=== PATIENT | female | born 1975 | race Caucasian/White ===

== ENCOUNTER → 2016-12-30 | Outpatient (CLI) | payer BC, OTHER ==
--- NOTE | 2017-01-03 11:32 | MM ---
Reason for exam: screening (asymptomatic). Last mammogram was performed 6 years and 11 months ago. Physical Findings: A clinical breast exam by your physician is recommended on an annual basis and results should be correlated with mammographic findings. MG Screening Mammo w CAD Bilateral CC and MLO view(s) were taken. Prior study comparison: February 10, 2010, bilateral digital screening mammogram. There are scattered fibroglandular densities. No significant changes when compared with prior studies. ASSESSMENT: Benign, BI-RAD 2 RECOMMENDATION: Routine screening mammogram of both breasts in 1 year.
== END ==
LOC: RADMAMWWP 13:49
PROVIDERS: ATTEND Family Medicine
DX: Z12.31 Encounter for screening mammogram for malignant neoplasm of breast (principal)

== ENCOUNTER 2017-02-04 22:33 | Emergency (ER) | payer BC, OTHER ==
--- NOTE | 2017-02-04 23:17 | ED ---
Skin/Abscess/FB HPI - General Chief complaint: Skin/Abscess/Foreign Body Stated complaint: lump on buttox Time Seen by Provider: 02/04/17 22:55 Source: patient, RN notes reviewed Mode of arrival: ambulatory Limitations: no limitations - History of Present Illness Initial comments: 42 yo female presents to the ER with chief complaint of gluteal abscess. pt states that she has had this for the past 3 or 4 days and has been getting worse. Patient states that his symptoms such. Patient denies any drainage or discharge from the area. Patient denies any fever chills cough cold runny nose. Patient states she was concerned due to the continued symptoms that she thought that she should be evaluated. Patient denies any recent fever, chills, shortness of breath, chest pain, back pain, abdominal pain, nausea vomiting, numbness or tingling, dysuria or hematuria, constipation or diarrhea, headaches or visual changes, or any other current symptoms. - Related Data Home Medications Medication Instructions Recorded Confirmed Loratadine [Claritin] 10 mg PO DAILY 02/28/16 02/28/16 Levothyroxine Sodium [Synthroid] 25 mcg PO DAILY 02/04/17 02/04/17 Previous Rx's Medication Instructions Recorded Sulfamethox-Tmp 800-160Mg [Bactrim 2 each PO Q12HR #56 tab 02/04/17 DS 800-160 mg] Allergies Allergy/AdvReac Type Severity Reaction Status Date / Time cephalexin monohydrate Allergy Nausea & Verified 02/04/17 22:54 [From Keflex] Vomiting & Diarrhea Penicillins Allergy Rash/Hives Verified 02/04/17 22:54 morphine AdvReac Itching Verified 02/04/17 22:54 Review of Systems ROS Statement: Those systems with pertinent positive or pertinent negative responses have been documented in the HPI. ROS Other: All systems not noted in ROS Statement are negative. Past Medical History Past Medical History: Thyroid Disorder History of Any Multi-Drug Resistant Organisms: None Reported Past Surgical History: Appendectomy, Section, Cholecystectomy, Tubal Ligation Past Psychological History: No Psychological Hx Reported Smoking Status: Former smoker Past Alcohol Use History: None Reported Past Drug Use History: None Reported General Exam Limitations: no limitations General appearance: alert, in no apparent distress ENT exam: Present: normal exam, mucous membranes moist Neck exam: Present: normal inspection Respiratory exam: Present: normal lung sounds bilaterally. Absent: respiratory distress, wheezes, rales, rhonchi, stridor Cardiovascular Exam: Present: regular rate, normal rhythm, normal heart sounds. Absent: systolic murmur, diastolic murmur, rubs, gallop, clicks Extremities exam: Present: normal inspection, full ROM, normal capillary refill. Absent: tenderness, pedal edema, joint swelling, calf tenderness Back exam: Present: normal inspection Neurological exam: Present: alert, oriented X3 Psychiatric exam: Present: normal affect, normal mood Skin exam: Present: warm, dry, other (Due to abscess to the left butt cheek.) Course Vital Signs 02/04/17 22:52 Temperature 97.9 F Pulse Rate 88 Respiratory 20 Rate Blood Pressure 135/89 O2 Sat by Pulse 99 Oximetry Medical Decision Making - Medical Decision Making 42-year-old female presents with gluteal abscess. A needle was used which did not create any purulent material when we did excise the wound. At this time we discussed we will start her on Bactrim. We discussed return plan. Patient was questions. They state Jamey plan. They will be discharged home. Disposition Clinical Impression: Abscess, gluteal, left Disposition: HOME SELF-CARE Condition: Stable Instructions: Abscess (ED) Additional Instructions: Please use medication as discussed. Please follow up with family doctor if symptoms have not improved over the next two days. Please return to the emergency room if your symptoms increase or worsen or for any other concerns. Prescriptions: Sulfamethox-Tmp 800-160Mg [Bactrim DS 800-160 mg] 2 each PO Q12HR #56 tab Referrals: Maddie Balderrama MD [Primary Care Provider] - 1-2 days Time of Disposition: 23:18
[2017-02-04 23:56] VITALS: BP 130/89; PULSE 98; RESP 18; TEMP 98.2
== END 2017-02-05 00:01 | disposition home or self-care (01) ==
LOC: EC 22:33
DX: L02.31 Cutaneous abscess of buttock (principal); E07.9 Disorder of thyroid, unspecified; Z87.891 Personal history of nicotine dependence; Z79.899 Other long term (current) drug therapy; Z88.1 Allergy status to other antibiotic agents; Z88.0 Allergy status to penicillin; Z88.5 Allergy status to narcotic agent
CPT/HCPCS: 99283

== ENCOUNTER 2017-02-08 00:33 | Emergency (ER) | payer OTHER ==
[2017-02-08 00:48] VITALS: BP 140/80; PULSE 88; RESP 20; TEMP 98.6
[2017-02-08] MEDS ORDERED: CLINDAMYCIN 150 MG CAP PO STA (01:05)
--- NOTE | 2017-02-08 01:09 | ED ---
Skin/Abscess/FB HPI - General Chief complaint: Skin/Abscess/Foreign Body Stated complaint: Sores-Revisit Time Seen by Provider: 02/08/17 00:52 Source: patient, RN notes reviewed Mode of arrival: ambulatory Limitations: no limitations - History of Present Illness Initial comments: Patient is a 42-year-old female presents to the emergency room for reevaluation of left gluteal abscess. Patient states she was seen on Tuesday. Patient states the area was incised with a needle. Patient states she was placed on Bactrim. Patient states that she has a family history of ALLERGIES to Bactrim. Patient states she was afraid to take Bactrim and wanted to wait to see her primary care provider on Tuesday before taking it. Patient states that due to insurance changes she was unable see her primary care provider. Patient states she is here to have the area reevaluated. Patient states she wants to take a different antibiotic other than Bactrim because she's afraid to have an ALLERGIC reaction to it. Patient denies any worsening pain. Patient denies any drainage from the area. Patient states that she's been cleaning the area and applying warm compresses. Patient denies history of MRSA. Patient denies fevers or chills. - Related Data Home Medications Medication Instructions Recorded Confirmed Loratadine [Claritin] 10 mg PO DAILY PRN 02/28/16 02/08/17 Levothyroxine Sodium [Synthroid] 25 mcg PO DAILY 02/04/17 02/08/17 Previous Rx's Medication Instructions Recorded Sulfamethox-Tmp 800-160Mg [Bactrim 2 each PO Q12HR #56 tab 02/04/17 DS 800-160 mg] Clindamycin [Cleocin] 300 mg PO Q6H 7 Days 02/08/17 Allergies Allergy/AdvReac Type Severity Reaction Status Date / Time bacitracin Allergy Rash/Hives Verified 02/08/17 00:47 [From Neosporin ([id number])] morphine Allergy Itching Verified 02/08/17 00:47 neomycin Allergy Rash/Hives Verified 02/08/17 00:47 [From Neosporin ([id number])] Penicillins Allergy Rash/Hives Verified 02/08/17 00:47 polymyxin B Allergy Rash/Hives Verified 02/08/17 00:47 [From Neosporin ([id number])] cephalexin monohydrate AdvReac Nausea & Verified 02/08/17 00:47 [From Keflex] Vomiting & Diarrhea Review of Systems ROS Statement: Those systems with pertinent positive or pertinent negative responses have been documented in the HPI. ROS Other: All systems not noted in ROS Statement are negative. Past Medical History Past Medical History: Thyroid Disorder History of Any Multi-Drug Resistant Organisms: None Reported Past Surgical History: Appendectomy, Section, Cholecystectomy, Tubal Ligation Past Psychological History: No Psychological Hx Reported Smoking Status: Former smoker Past Alcohol Use History: None Reported Past Drug Use History: None Reported General Exam - General Exam Comments Initial Comments: Laying in exam room, no distress. Limitations: no limitations General appearance: alert, in no apparent distress Head exam: Present: atraumatic, normocephalic, normal inspection Eye exam: Present: normal appearance ENT exam: Present: normal exam Neck exam: Present: normal inspection Respiratory exam: Present: normal lung sounds bilaterally. Absent: respiratory distress Cardiovascular Exam: Present: regular rate, normal rhythm, normal heart sounds Extremities exam: Present: normal inspection Back exam: Present: normal inspection Neurological exam: Present: alert, oriented X3, CN II-XII intact, normal gait Psychiatric exam: Present: normal affect, normal mood Skin exam: Present: warm, dry, other (Small pinpoint scabs over left gluteal cleft with slight surrounding erythema. No fluctuance or signs of abscess noted. No significant cellulitis noted.) Course Vital Signs 02/08/17 00:45 Temperature 98.6 F Pulse Rate 88 Respiratory 20 Rate Blood Pressure 140/80 O2 Sat by Pulse 98 Oximetry Medical Decision Making - Medical Decision Making Patient is a 42-year-old female presents to the emergency room for reevaluation of left gluteal abscess. Area does appear to be improved from what patient described how the area looked on Tuesday. Patient does not want to take Bactrim. Will switch patient from Bactrim to clindamycin, which will still cover MRSA if needed. Advised patient to still have the area reevaluated in a few days by her primary care provider. Patient states she understands everything that was discussed with her. Return parameters discussed. Disposition Clinical Impression: Folliculitis Disposition: HOME SELF-CARE Condition: Good Instructions: Folliculitis (ED) Additional Instructions: Take antibiotics as directed. Continue with warm compresses and sitz baths. Please follow up with primary care provider in 1-2 days for reevaluation. If any new symptom arises or symptoms worsen, return to ER as soon as possible. Prescriptions: Clindamycin [Cleocin] 300 mg PO Q6H 7 Days Referrals: Maddie Balderrama MD [Primary Care Provider] - 1-2 days Time of Disposition: 01:07
== END 2017-02-08 01:20 | disposition home or self-care (01) ==
LOC: EC 00:33
DX: L73.9 Follicular disorder, unspecified (principal); E07.9 Disorder of thyroid, unspecified; Z87.891 Personal history of nicotine dependence; Z88.1 Allergy status to other antibiotic agents; Z88.0 Allergy status to penicillin; Z88.5 Allergy status to narcotic agent; Z88.2 Allergy status to sulfonamides; Z79.899 Other long term (current) drug therapy
CPT/HCPCS: 99282

== ENCOUNTER 2018-07-03 21:46 | Emergency (ER) | payer OTHER ==
[2018-07-03 21:50] VITALS: BP 124/88; PULSE 59; RESP 22; TEMP 98.5
--- NOTE | 2018-07-03 22:18 | ED ---
URI HPI - General Chief Complaint: Upper Respiratory Infection Stated Complaint: congestion Time Seen by Provider: 07/03/18 22:02 Source: patient, family Mode of arrival: ambulatory Limitations: no limitations - History of Present Illness Initial Comments: 43-year-old female patient presents to the emergency department today for evaluation of nasal congestion. Patient states that she has had nasal congestion and mild cough since Tuesday. Patient states that she is concerned she may have a sinus infection. States that she is not having any nasal drainage. States she has been taking mucinex max which includes a decongestant and it doesn't seem to be helping. States that she has also flushing with saline and and applying warm compresses to her face which do not help either. She denies any fevers or chills with this. Denies any shortness of breath or chest pain. States that she does x-ray and facial pressure. Patient denies any recent rash, chest pain, abdominal pain, nausea, vomiting, diarrhea, constipation, back pain, numbness, tingling, dizziness, weakness, hematuria, dysuria, urinary urgency, urinary frequency, headache, visual changes, or any other complaints. - Related Data Home Medications Medication Instructions Recorded Confirmed Loratadine [Claritin] 10 mg PO DAILY PRN 02/28/16 07/03/18 Azithromycin [Zithromax Z-pack] See Taper PO DIRECTED 08/01/17 07/03/18 Levothyroxine Sodium [Synthroid] 50 mcg PO DAILY 08/01/17 07/03/18 Pseudoephedrine HCl [Sudafed] 30 mg PO Q4HR PRN 08/01/17 07/03/18 Previous Rx's Medication Instructions Recorded Ciprofloxacin HCl [Cipro] 500 mg PO Q12HR #20 tablet 08/01/17 Fluticasone Nasal [place] [Flonase 2 spr EA NOSTRIL DAILY #1 bottle 08/01/17 Nasal [place]] Mometasone Furoate [Nasonex Nasal 2 spr EA NOSTRIL DAILY #1 bottle 07/03/18 [place]] Allergies Allergy/AdvReac Type Severity Reaction Status Date / Time bacitracin Allergy Rash/Hives Verified 07/03/18 21:50 [From Neosporin ([id number])] morphine Allergy Itching Verified 07/03/18 21:50 neomycin Allergy Rash/Hives Verified 07/03/18 21:50 [From Neosporin ([id number])] Penicillins Allergy Rash/Hives Verified 07/03/18 21:50 polymyxin B Allergy Rash/Hives Verified 07/03/18 21:50 [From Neosporin ([id number])] cephalexin monohydrate AdvReac Nausea & Verified 07/03/18 21:50 [From Keflex] Vomiting & Diarrhea Review of Systems ROS Statement: Those systems with pertinent positive or pertinent negative responses have been documented in the HPI. ROS Other: All systems not noted in ROS Statement are negative. Past Medical History Past Medical History: Thyroid Disorder History of Any Multi-Drug Resistant Organisms: None Reported Past Surgical History: Appendectomy, Section, Cholecystectomy, Tubal Ligation Past Psychological History: No Psychological Hx Reported Smoking Status: Former smoker Past Alcohol Use History: None Reported Past Drug Use History: None Reported General Exam Limitations: no limitations General appearance: alert, in no apparent distress, other (This is a well- developed, well-nourished adult female patient in no acute distress. Vital signs upon presentation are temperature 98.5F, pulse 59, respirations 22, blood pressure 124 radiate, pulse ox 99% on room air.) Eye exam: Present: normal appearance, PERRL, EOMI. Absent: scleral icterus, conjunctival injection, periorbital swelling ENT exam: Present: normal exam, normal oropharynx, mucous membranes moist, TM's normal bilaterally, other (Maxillary Sinus tenderness) Neck exam: Present: normal inspection. Absent: tenderness, meningismus, lymphadenopathy Respiratory exam: Present: normal lung sounds bilaterally. Absent: respiratory distress, wheezes, rales, rhonchi, stridor Cardiovascular Exam: Present: regular rate, normal rhythm, normal heart sounds. Absent: systolic murmur, diastolic murmur, rubs, gallop, clicks Neurological exam: Present: alert, oriented X3, CN II-XII intact Psychiatric exam: Present: normal affect, normal mood Skin exam: Present: warm, dry, intact, normal color. Absent: rash Course Vital Signs 07/03/18 21:47 Temperature 98.5 F Pulse Rate 59 L Respiratory 22 Rate Blood Pressure 124/88 O2 Sat by Pulse 99 Oximetry Medical Decision Making - Medical Decision Making 43-year-old female patient presented to the emergency department today for complaints of nasal congestion. Physical examination did reveal some maxillary sinus tenderness. Oropharynx is normal. Vital signs are stable. Patient symptoms are consistent with viral rhinosinusitis. She is instructed to continue taking the [id number] nasal decongestants. We will add Nasacort to her regimen. She is instructed to follow-up with her primary care physician for recheck in 1-2 days. Return parameters discussed in detail. She verbalizes understanding and agrees with this plan. Disposition Clinical Impression: Acute rhinosinusitis Disposition: HOME SELF-CARE Condition: Good Instructions: Rhinosinusitis (ED) Additional Instructions: Take medications as directed. Follow-up with your primary care physician for recheck in 1-2 days. Return here immediately for any new, worsening, or concerning symptoms. Prescriptions: Mometasone Furoate [Nasonex Nasal [place]] 2 spr EA NOSTRIL DAILY #1 bottle Is patient prescribed a controlled substance at d/c from ED?: No Referrals: Maddie Balderrama MD [Primary Care Provider] - 1-2 days Time of Disposition: 22:18
== END 2018-07-03 22:24 | disposition home or self-care (01) ==
LOC: EC 21:46
DX: J01.00 Acute maxillary sinusitis, unspecified (principal); E07.9 Disorder of thyroid, unspecified; Z87.891 Personal history of nicotine dependence; Z79.899 Other long term (current) drug therapy; Z88.0 Allergy status to penicillin; Z88.1 Allergy status to other antibiotic agents; Z88.5 Allergy status to narcotic agent
CPT/HCPCS: 99283

== ENCOUNTER 2018-08-12 15:53 | Emergency (ER) | payer OTHER ==
[2018-08-12 16:03] VITALS: PULSE 82; RESP 16; TEMP 97.5
[2018-08-12] MEDS ORDERED: SODIUM CHLORIDE 0.9% 1,000 ML IV STA (16:16)
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
[2018-08-12 16:45] LABS: Basophils % (A) 1 %; Eosinophils # (A) 0.2 k/uL (0-0.7); Eosinophils % (A) 2 %; HGB 13.2 gm/dL (11.4-16.0); Lymphocytes # (A) 1.4 k/uL (1.0-4.8); Lymphocytes % (A) 22 %; MCH 28.6 pg (25.0-35.0); MCHC 33.1 g/dL (31.0-37.0); MCV 86.6 fL (80.0-100.0); Mean Platelet Volume 6.9; Monocytes # (A) 0.3 k/uL (0-1.0); Monocytes % (A) 5 %; Neutrophils # (A) 4.6 k/uL (1.3-7.7); Neutrophils % (A) 69 %; Platelet Count 288 k/uL (150-450); RBC 4.62 m/uL (3.80-5.40); RDW 13.8 % (11.5-15.5); WBC 6.6 k/uL (3.8-10.6)
[2018-08-12 16:54] LABS: ALT 16 U/L (9-52); AST 21 U/L (14-36); Albumin 3.7 g/dL (3.5-5.0); Alkaline Phosphatase 48 U/L (38-126); Anion Gap 6 mmol/L; Blood Urea Nitrogen 9 mg/dL (7-17); Calcium 9.3 mg/dL (8.4-10.2); Carbon Dioxide 27 mmol/L (22-30); Chloride 108 mmol/L (98-107); Glucose 86 mg/dL (74-99); Potassium 4.6 mmol/L (3.5-5.1); Sodium 141 mmol/L (137-145); Total Bilirubin 0.4 mg/dL (0.2-1.3); Total Protein 6.5 g/dL (6.3-8.2)
[2018-08-12 16:57] LABS: Creatine Kinase 55 U/L (30-135)
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
[2018-08-12 17:10] LABS: Creatine Kinase MB 0.3 ng/mL (0.0-2.4); Troponin I <0.012 ng/mL (0.000-0.034)
[2018-08-12 17:56] VITALS: BP 118/60
== END 2018-08-12 17:56 | disposition home or self-care (01) ==
LOC: EC 15:53
DX: S16.1XXA Strain of muscle, fascia and tendon at neck level, initial encounter (principal); R07.89 Other chest pain; R06.00 Dyspnea, unspecified; E07.9 Disorder of thyroid, unspecified; Z87.891 Personal history of nicotine dependence; Z79.899 Other long term (current) drug therapy; Z88.1 Allergy status to other antibiotic agents; Z88.5 Allergy status to narcotic agent; Z88.0 Allergy status to penicillin; V89.2XXA Person injured in unspecified motor-vehicle accident, traffic, initial encounter; Y92.89 Other specified places as the place of occurrence of the external cause
CPT/HCPCS: 36415; 71046; 80053; 82550; 82553; 84484; 85025; 85610; 85730; 96360; 99284

== ENCOUNTER 2018-10-04 00:32 | Emergency (ER) | payer OTHER ==
[2018-10-04 00:38] VITALS: RESP 16
--- NOTE | 2018-10-04 02:07 | CT ---
EXAMINATION TYPE: CT facial bones wo con DATE OF EXAM: 10/04/2018 COMPARISON: None HISTORY: Right side facial and jaw pain CT DLP: 1033.60 mGycm Automated exposure control for dose reduction was used. TECHNIQUE: CT scan of the sinuses is performed without contrast, axial images are obtained, coronal r eformatted images are also reviewed. FINDINGS: The orbital margins are intact. There is no evidence of a blowout fracture. The nasal bone is intact. There is small fluid level in right maxillary sinus. There is bilateral patency of the ost iomeatal complex. The maxilla is intact. Zygomatic arches appear intact. The mandible is intact. Temp oromandibular joints appear normal. There is normal aeration of the mastoid sinuses. Temporomandibula r joint spaces are normal. There is no evidence of a soft tissue mass. Submandibular salivary glands are fairly symmetric. There are a few submandibular lymph nodes that measure up to 9 mm. There are an terior triangle cervical lymph nodes that measure up to 11 mm. IMPRESSION: Small fluid level right maxillary sinus is nonspecific and could relate to inflammatory d isease. No fracture. Nonspecific cervical lymph nodes.
--- NOTE | 2018-10-04 02:48 | ED ---
ENT HPI - General Chief complaint: ENT Stated complaint: throat pain Time Seen by Provider: 10/04/18 01:18 Source: patient, RN notes reviewed, old records reviewed Mode of arrival: ambulatory Limitations: no limitations - History of Present Illness Initial comments: 43 year old female presents with intense R ear pain, popping, sore throat, and mastoid pain. She reports that the ear popping occured yesterday. She states that she has intermittent fevers. She reports diminished hearing. 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 She complains of sinus tenderness as well. - Related Data Home Medications Medication Instructions Recorded Confirmed Loratadine [Claritin] 10 mg PO DAILY PRN 02/28/16 07/03/18 Azithromycin [Zithromax Z-pack] See Taper PO DIRECTED 08/01/17 07/03/18 Levothyroxine Sodium [Synthroid] 50 mcg PO DAILY 08/01/17 07/03/18 Pseudoephedrine HCl [Sudafed] 30 mg PO Q4HR PRN 08/01/17 07/03/18 Previous Rx's Medication Instructions Recorded Ciprofloxacin HCl [Cipro] 500 mg PO Q12HR #20 tablet 08/01/17 Fluticasone Nasal [place] [Flonase 2 spr EA NOSTRIL DAILY #1 bottle 08/01/17 Nasal [place]] Mometasone Furoate [Nasonex Nasal 2 spr EA NOSTRIL DAILY #1 bottle 07/03/18 [place]] Cyclobenzaprine [Flexeril] 10 mg PO TID #10 tab 08/12/18 Ibuprofen 600 mg PO TID #20 tablet 08/12/18 Azithromycin [Zithromax Z-pack] 250 mg PO DIRECTED #6 tab 10/04/18 Fluticasone Nasal [place] [Flonase 2 spr EA NOSTRIL DAILY #1 bottle 10/04/18 Nasal [place]] Loratadine-Pseudoeph 5-120 mg 1 each PO Q12HR #20 tab 10/04/18 [Claritin-D 12 HR] Allergies Allergy/AdvReac Type Severity Reaction Status Date / Time bacitracin Allergy Rash/Hives Verified 10/04/18 00:38 [From Neosporin ([id number])] morphine Allergy Itching Verified 10/04/18 00:38 neomycin Allergy Rash/Hives Verified 10/04/18 00:38 [From Neosporin ([id number])] Penicillins Allergy Rash/Hives Verified 10/04/18 00:38 polymyxin B Allergy Rash/Hives Verified 10/04/18 00:38 [From Neosporin ([id number])] cephalexin monohydrate AdvReac Nausea & Verified 10/04/18 00:38 [From Keflex] Vomiting & Diarrhea Review of Systems ROS Statement: Those systems with pertinent positive or pertinent negative responses have been documented in the HPI. ROS Other: All systems not noted in ROS Statement are negative. Past Medical History Past Medical History: Thyroid Disorder History of Any Multi-Drug Resistant Organisms: None Reported Past Surgical History: Appendectomy, Section, Cholecystectomy, Tubal Ligation Past Psychological History: No Psychological Hx Reported Smoking Status: Former smoker Past Alcohol Use History: None Reported Past Drug Use History: None Reported General Exam - General Exam Comments Initial Comments: This is a 43 year old female, no acute distress. Limitations: no limitations General appearance: alert, in no apparent distress Head exam: Present: atraumatic, normocephalic, normal inspection Eye exam: Present: normal appearance, PERRL, EOMI. Absent: scleral icterus, conjunctival injection, periorbital swelling ENT exam: Present: mucous membranes moist, TM's normal bilaterally, other ( Tenderness over R mastoid, all sinusus). Absent: normal exam (erythemaotus oropharynx. ), normal oropharynx, mucous membranes dry Neck exam: Present: normal inspection. Absent: tenderness, meningismus, lymphadenopathy Respiratory exam: Present: normal lung sounds bilaterally. Absent: respiratory distress, wheezes, rales, rhonchi, stridor Cardiovascular Exam: Present: regular rate, normal rhythm, normal heart sounds. Absent: systolic murmur, diastolic murmur, rubs, gallop, clicks Extremities exam: Present: normal inspection, full ROM, normal capillary refill. Absent: tenderness, pedal edema, joint swelling, calf tenderness Back exam: Present: normal inspection Neurological exam: Present: alert, oriented X3, CN II-XII intact Course Vital Signs 10/04/18 10/04/18 00:36 03:00 Temperature 98.7 F 98.1 F Pulse Rate 86 91 Respiratory 16 16 Rate Blood Pressure 133/92 125/98 O2 Sat by Pulse 99 97 Oximetry Medical Decision Making - Medical Decision Making 43 year old female presents today with R ear pain, popping, mastoid tenderness, and sinus pain. She states that she has a history of facial bone deterioration, and questions if she has infections within her facial bones. CT scan completed, showing mild R maxillary sinus fluid. Will put the patient on antibiotics for sinusitis and given ENT referral. Discussed PCP follow up as well. - Lab Data Lab Results 10/04/18 Range/Units 01:40 Group A Strep Rapid Negative (Negative) - Radiology Data Radiology results: report reviewed Small fluid level in the right maxillary sinus nonspecific. Really towards inflammatory disease. No fracture. Nonspecific cervical lymph nodes noted. Disposition Clinical Impression: Sinusitis, Pharyngitis Disposition: HOME SELF-CARE Condition: Good Instructions: Sinusitis (ED) Additional Instructions: Patient advised to take meds as prescribed. Follow-up with primary care physician. Return to emergency department if any alarming signs or symptoms occur. Prescriptions: Azithromycin [Zithromax Z-pack] 250 mg PO DIRECTED #6 tab Fluticasone Nasal [place] [Flonase Nasal [place]] 2 spr EA NOSTRIL DAILY #1 bottle Loratadine-Pseudoeph 5-120 mg [Claritin-D 12 HR] 1 each PO Q12HR #20 tab Is patient prescribed a controlled substance at d/c from ED?: No Referrals: Maddie Balderrama MD [Primary Care Provider] - 1-2 days Time of Disposition: 02:46
[2018-10-04 03:01] VITALS: BP 125/98; PULSE 91; TEMP 98.1
== END 2018-10-04 03:00 | disposition home or self-care (01) ==
LOC: EC 00:32
DX: J32.9 Chronic sinusitis, unspecified (principal); J02.9 Acute pharyngitis, unspecified; E07.9 Disorder of thyroid, unspecified; Z79.890 Hormone replacement therapy; Z88.0 Allergy status to penicillin; Z88.1 Allergy status to other antibiotic agents; Z88.5 Allergy status to narcotic agent; Z87.891 Personal history of nicotine dependence
CPT/HCPCS: 70486; 87081; 87430; 99284

== ENCOUNTER 2019-03-14 09:01 | Day surgery (SDC) | payer BC ==
[2019-03-09 14:50] VITALS: BMI 29.2
[~2019-03-14 09:01] MED LIST: DEXAMETHASONE SOD PHOSPHATE 4 MG/ML 1 ML VIAL IV ONE; FAMOTIDINE 20 MG/2 ML VIAL IV ONE; LACTATED RINGERS 1,000 ML IV SCH; LIDOCAINE 1% 20 ML VIAL (10MG/ML) FOR IV START INTRADERMA PRN; ONDANSETRON 4 MG/2 ML VIAL IVP ONE; OXYMETAZOLINE 0.05% NASL SPRAY 1 SPRAY BOTTLE NASAL ONE
[2019-03-14] MEDS ORDERED: SUCCINYLCHOLINE CHLORIDE 100 MG/5 ML SYR IV ONE (11:06)
[2019-03-14] MEDS ORDERED: fentaNYL (PF) 50 MCG/ML 2 ML AMP ONE (11:06)
[2019-03-14] MEDS ORDERED: LIDOCAINE 1% INJ 10MG/ML (20 ML MDV) ONE (11:06)
[2019-03-14] MEDS ORDERED: MIDAZOLAM 2 MG/2 ML VIAL ONE (11:06)
[2019-03-14] MEDS ORDERED: PROPOFOL 10 MG/ML 20 ML VIAL IV ONE (11:06)
[2019-03-14] MEDS: CLINDAMYCIN 600 MG in DEXTROSE 5% IN WATER 50 ML IVPB ONE ×4 (11:10→11:25)
[2019-03-14] MEDS ORDERED: LACTATED RINGERS 1,000 ML IV ONE (11:47)
--- NOTE | 2019-03-14 11:48 | P.OP ---
Date of Procedure: 03/14/19 Preoperative Diagnosis: Nasopharyngeal lesion/chronic adenoiditis Left tonsillar cyst Postoperative Diagnosis: Same Procedure(s) Performed: Nasopharynx biopsy/adenoidectomy Excision left tonsillar cyst Anesthesia: GENE Surgeon: Hector Felix Estimated Blood Loss (ml): 2 Pathology: other (Adenoid and tonsil cyst left) Condition: stable Disposition: PACU Indications for Procedure: This is a 44-year-old white female who has chronic postnasal drainage and was having some expectorated crusting with mild blood at times and was noted to have adenoid hypertrophy but also a central ulceration of the adenoid tissue. Patient also has a chronic left tonsillar fossa cyst which is gradually enlarging she was removed. Operative Findings: Left tonsillar cyst approximately 13 mm which was excised grossly entirely, moderate adenoid hypertrophy with minimal crusting in the midportion Description of Procedure: The patient was brought in the operative suite and placed in a supine position. Patient underwent induction of general anesthesia with oral endotracheal intubation without difficulty. Patient prepped and draped in usual aseptic fashion. The McIvor mouth gag was placed. Soft palate was palpated and no submucous cleft was noted. Red Dowell catheter was placed the right nasal cavity and pulled through the oropharynx for soft palate retraction. There was a small mucous crust is midportion of the adenoid bed and this was suctioned the adenoids were only mildly to moderately enlarged and were removed with adenoid curet. Hemostasis gained with suction cautery and the catheter was removed. The left tonsil cyst was then grasped with a curved Allis clamp and upon grasping this it was opened with thick white to yellow caseous material was expressed. The cyst itself was then excised from the surrounding tissue grossly entirely with electrocautery. Once was excised hemostasis was gained with suction cautery. Hemostasis remained good in the nasopharynx and oropharynx and the patient was suctioned in oral gastric fashion. Patient allowed to emerge from general anesthesia having tolerated procedure well was extubated in the operating suite and transferred postoperative recovery area in satisfactory.
[2019-03-14 12:09] VITALS: TEMP 97.7
[2019-03-14 13:29] VITALS: RESP 16
[2019-03-14 13:47] VITALS: BP 124/77; PULSE 68
== END 2019-03-14 14:24 | disposition home or self-care (01) ==
LOC: OR 09:01
PROVIDERS: ATTEND Otolaryngology
DX: J35.8 Other chronic diseases of tonsils and adenoids (principal); J35.02 Chronic adenoiditis; J31.1 Chronic nasopharyngitis; J32.9 Chronic sinusitis, unspecified; E07.9 Disorder of thyroid, unspecified; K21.9 Gastro-esophageal reflux disease without esophagitis; Z87.891 Personal history of nicotine dependence; Z79.899 Other long term (current) drug therapy; J30.1 Allergic rhinitis due to pollen; Z88.5 Allergy status to narcotic agent; Z88.0 Allergy status to penicillin; Z88.2 Allergy status to sulfonamides; Z91.09 Other allergy status, other than to drugs and biological substances; Z90.49 Acquired absence of other specified parts of digestive tract
CPT/HCPCS: 42831; 42804; 42999; 81025; 88305; J2250; J1100; J2405; J2001; J3010; J0330; J2704

== ENCOUNTER 2019-03-16 21:03 | Emergency (ER) | payer BC ==
[2019-03-16 21:10] VITALS: BP 131/89; PULSE 67; RESP 20; TEMP 98.6
--- NOTE | 2019-03-16 21:19 | ED ---
General Adult HPI - General Chief complaint: Recheck/Abnormal Lab/Rx Stated complaint: Post Surgery Med Reaction Time Seen by Provider: 03/16/19 21:19 Source: patient Mode of arrival: ambulatory Limitations: no limitations - History of Present Illness Initial comments: Kathi moulton 44-year-old female presents the emergency department today for evaluation of extremity medication. 2 days ago patient had her adenoids removed as well as assist him in consult. She was discharged from there with his own dose pack. Patient reports that every time she takes a dose of steroids she becomes very hot and flushed and feels very unwell for approximately one hour. Symptoms didn't subside however because she is on the Dosepak she's been taking it 3 times daily and wanted to stop taking it but was told by her mother that stop taking steroids immediately so she came to the ER for guidance. She reports that she's had minimal pain postoperatively she has name and taken any of her tramadol that was prescribed. She reports she is otherwise feeling okay she's been drinking plenty of fluids because she feels the prednisone is making her urinate frequently. History of diabetes blood glucose upon arrival is 92. - Related Data Home Medications Medication Instructions Recorded Confirmed Acetaminophen Oral Susp [Tylenol 640 mg PO Q4-6H PRN 03/16/19 03/16/19 Oral Susp] methylPREDNISolone Dose Pack See Taper PO DIRECTED 03/16/19 03/16/19 [Medrol Dose Pack] Allergies Allergy/AdvReac Type Severity Reaction Status Date / Time bacitracin Allergy Rash/Hives Verified 03/16/19 21:46 [From Neosporin ([id number])] morphine Allergy Itching Verified 03/16/19 21:46 neomycin Allergy Rash/Hives Verified 03/16/19 21:46 [From Neosporin ([id number])] Penicillins Allergy Rash/Hives Verified 03/16/19 21:46 polymyxin B Allergy Rash/Hives Verified 03/16/19 21:46 [From Neosporin ([id number])] adhesive tape AdvReac BLISTERS Verified 03/16/19 21:46 cephalexin monohydrate AdvReac Nausea & Verified 03/16/19 21:46 [From Keflex] Vomiting & Diarrhea Review of Systems ROS Statement: Those systems with pertinent positive or pertinent negative responses have been documented in the HPI. ROS Other: All systems not noted in ROS Statement are negative. Past Medical History Past Medical History: Thyroid Disorder History of Any Multi-Drug Resistant Organisms: None Reported Past Surgical History: Adenoidectomy, Appendectomy, Section, Cholecystectomy, Hernia Repair, Tubal Ligation Past Anesthesia/Blood Transfusion Reactions: No Reported Reaction Additional Past Anesthesia/Blood Transfusion Reaction / Comment(s): TO LONGER WAKING UP " Past Psychological History: No Psychological Hx Reported Smoking Status: Former smoker Past Alcohol Use History: None Reported Past Drug Use History: None Reported - Past Family History Mother Family Medical History: No Reported History General Exam - General Exam Comments Initial Comments: Physical Exam GENERAL: Patient is well-developed and well-nourished. Patient is nontoxic and well-hydrated and is in no distress. HENT: Normocephalic, Atraumatic Posterior oropharynx with area of cauterization on the left tonsil consistent with postoperative healing EYES: PERRL, EOMI PULMONARY: Unlabored respirations. No audible rales rhonchi or wheezing was noted. CARDIOVASCULAR: There is a regular rate and rhythm without any murmurs gallops or rubs. ABDOMEN: Soft and nontender with normal bowel sounds. SKIN: Skin is clear with no lesions or rashes and otherwise unremarkable. : Deferred NEUROLOGIC: Patient is alert and oriented x3. Moving all extremities spontaneously MUSCULOSKELETAL: Normal extremities with adequate strength and full range of motion. No lower extremity swelling or edema. No calf tenderness. PSYCHIATRIC: Normal psychiatric evaluation Limitations: no limitations Course Vital Signs 03/16/19 21:06 Temperature 98.6 F Pulse Rate 67 Respiratory 20 Rate Blood Pressure 131/89 O2 Sat by Pulse 97 Oximetry Medical Decision Making - Medical Decision Making The patient was seen and evaluated history is obtained from patient Patient is having an adverse reaction to prednisone she reports is making her feel very unwell, hot flushed she is urinating frequently. Blood glucose is 92 Patient reports that at the time of reevaluation she is feeling better a ceilings tender her for an hour after taking her medication. She reports she's taken it 2 times today she is scheduled take 1 more dose but wanted to be advised to whether or not she can discontinue her earlier. She was advised that she can see of her nightly dose tonight, take half dose tomorrow and half dose the next day and then be done with the Dosepak as it seems to be making her ill. All questions pertaining care were answered return parameters were discussed she was discharged home in stable condition scheduled follow-up with ENT next week. - Lab Data Lab Results 03/16/19 Range/Units 21:31 POC Glucose (mg/dL) 92 (75-99) mg/dL POC Glu Bpm Developer ID Liane Adams Disposition Clinical Impression: Medication reaction Disposition: HOME SELF-CARE Condition: Stable Instructions (If sedation given, give patient instructions): Prednisone (By mouth) Is patient prescribed a controlled substance at d/c from ED?: No Referrals: Maddie Balderrama MD [Primary Care Provider] - 1-2 days
[2019-03-16 21:32] LABS: Glucose,Whole Blood 92 mg/dL (75-99)
== END 2019-03-16 21:52 | disposition home or self-care (01) ==
LOC: EC 21:03
DX: R35.0 Frequency of micturition (principal); T38.0X5A Adverse effect of glucocorticoids and synthetic analogues, initial encounter; Z90.89 Acquired absence of other organs; Z87.891 Personal history of nicotine dependence; Z79.52 Long term (current) use of systemic steroids; Z88.1 Allergy status to other antibiotic agents; Z88.0 Allergy status to penicillin; Z91.048 Other nonmedicinal substance allergy status
CPT/HCPCS: 36415; 99283

== ENCOUNTER 2019-03-30 03:45 | Emergency (ER) | payer BC ==
[2019-03-30 03:50] VITALS: BP 138/94; PULSE 93; RESP 16; TEMP 97.7
--- NOTE | 2019-03-30 04:19 | ED ---
General Adult HPI - General Chief complaint: Recheck/Abnormal Lab/Rx Stated complaint: Throat bleeding-post op Time Seen by Provider: 03/30/19 03:55 Source: patient Mode of arrival: ambulatory Limitations: no limitations - History of Present Illness Initial comments: This patient is a 44-year-old woman who presents to be evaluated for an episode of bleeding. Patient states that she had an adenoidectomy performed nearly [address] Wood. She states that tonight while she was drinking something and felt like she swallowed something and then shortly thereafter she noticed that there was some blood trickling down her throat. She felt she should be seen here in the emergency department. She states that on the way here she remembered her postop instructions recommending she drink cold liquids so she has been drinking cold Gatorade. She states that now feels like the bleeding has stopped. She is not having any symptoms of anemia, including no dyspnea, chest pain, palpitations, lightheadedness or syncope, diaphoresis or other symptoms. Onset/Timin -: hour(s) - Related Data Home Medications Medication Instructions Recorded Confirmed Acetaminophen Oral Susp [Tylenol 640 mg PO Q4-6H PRN 03/16/19 03/16/19 Oral Susp] methylPREDNISolone Dose Pack See Taper PO DIRECTED 03/16/19 03/16/19 [Medrol Dose Pack] Allergies Allergy/AdvReac Type Severity Reaction Status Date / Time bacitracin Allergy Rash/Hives Verified 03/30/19 03:50 [From Neosporin ([id number])] morphine Allergy Itching Verified 03/30/19 03:50 neomycin Allergy Rash/Hives Verified 03/30/19 03:50 [From Neosporin ([id number])] Penicillins Allergy Rash/Hives Verified 03/30/19 03:50 polymyxin B Allergy Rash/Hives Verified 03/30/19 03:50 [From Neosporin ([id number])] adhesive tape AdvReac BLISTERS Verified 03/30/19 03:50 cephalexin monohydrate AdvReac Nausea & Verified 03/30/19 03:50 [From Keflex] Vomiting & Diarrhea Review of Systems ROS Statement: Those systems with pertinent positive or pertinent negative responses have been documented in the HPI. ROS Other: All systems not noted in ROS Statement are negative. Constitutional: Denies: fever, chills, weakness ENT: Denies: throat pain Respiratory: Denies: cough, dyspnea, hemoptysis Cardiovascular: Denies: chest pain, palpitations, syncope Gastrointestinal: Denies: abdominal pain, vomiting Neurological: Denies: headache Hematological/Lymphatic: Denies: easy bleeding Past Medical History Past Medical History: Thyroid Disorder History of Any Multi-Drug Resistant Organisms: None Reported Past Surgical History: Adenoidectomy, Appendectomy, Section, Cho lecystectomy, Hernia Repair, Tubal Ligation Past Anesthesia/Blood Transfusion Reactions: No Reported Reaction Additional Past Anesthesia/Blood Transfusion Reaction / Comment(s): TO LONGER WAKING UP " Past Psychological History: No Psychological Hx Reported Smoking Status: Former smoker Past Alcohol Use History: None Reported Past Drug Use History: None Reported - Past Family History Mother Family Medical History: No Reported History General Exam Limitations: no limitations General appearance: alert, in no apparent distress Head exam: Present: atraumatic, normocephalic Eye exam: Present: normal appearance. Absent: scleral icterus, conjunctival injection ENT exam: Present: normal oropharynx, mucous membranes moist Neck exam: Present: normal inspection, full ROM. Absent: tenderness, lymphadenopathy Respiratory exam: Present: normal lung sounds bilaterally. Absent: respiratory distress, wheezes, rales, rhonchi, stridor Cardiovascular Exam: Present: regular rate, normal rhythm, normal heart sounds. Absent: systolic murmur, diastolic murmur, rubs, gallop Neurological exam: Present: alert Skin exam: Present: warm, dry, intact, normal color. Absent: rash Course Vital Signs 03/30/19 03:46 Temperature 97.7 F Pulse Rate 93 Respiratory 16 Rate Blood Pressure 138/94 O2 Sat by Pulse 98 Oximetry Medical Decision Making - Medical Decision Making Discussed postoperative bleeding with the patient, and she states she is feeling well and not having any other symptoms. Patient denies symptoms of anemia and declines lab testing. Discussed appropriate further care and follow-up. Disposition Clinical Impression: Encounter for wound re-check Disposition: HOME SELF-CARE Condition: Good Instructions (If sedation given, give patient instructions): Adenoidectomy (DC) Is patient prescribed a controlled substance at d/c from ED?: No Referrals: Maddie Balderrama MD [Primary Care Provider] - 1-2 days Hector Felix MD [STAFF PHYSICIAN] - 1-2 days
== END 2019-03-30 04:28 | disposition home or self-care (01) ==
LOC: EC 03:45
DX: Z48.89 Encounter for other specified surgical aftercare (principal); Z90.89 Acquired absence of other organs; Z87.891 Personal history of nicotine dependence; Z53.29 Procedure and treatment not carried out because of patient's decision for other reasons; Z79.52 Long term (current) use of systemic steroids; Z88.1 Allergy status to other antibiotic agents; Z88.5 Allergy status to narcotic agent; Z88.0 Allergy status to penicillin; Z91.048 Other nonmedicinal substance allergy status
CPT/HCPCS: 99283

== ENCOUNTER → 2019-06-14 | Outpatient (CLI) | payer BC ==
[2019-06-14 16:37] LABS: Thyroid Peroxidase Antibodies <28.0 U/mL (0.0-60.0)
[2019-06-14 16:38] LABS: T4, Free (Free Thyroxine) 0.8 ng/dL (0.80-1.80)
== END | disposition home or self-care (01) ==
LOC: LABWHC1 09:44
PROVIDERS: ATTEND Internal Medicine Endocrinology, Diabetes & Metabolism
DX: E03.8 Other specified hypothyroidism (principal)
CPT/HCPCS: 36415; 84439; 84443; 84480; 86376

== ENCOUNTER 2019-08-01 04:40 | Emergency (ER) | payer BC, OTHER ==
[2019-08-01 04:48] VITALS: TEMP 97.9
--- NOTE | 2019-08-01 04:55 | ED ---
Upper Extremity HPI - General Chief Complaint: Extremity Injury, Upper Stated Complaint: [facility]-finger injury Time Seen by Provider: 08/01/19 04:55 Source: patient Mode of arrival: ambulatory Limitations: no limitations - History of Present Illness Initial Comments: Kathi is a 44 her old female presents the emergency department today for evaluation of right thumb pain. Patient reports she was at work this evening, she was using a wrench to tighten something when her hand slipped and her thumb was smashed between the tool and the machine. Patient reports immediate pain, she reports decreased range of motion secondary to pain. She did not note any obvious deformity. She did not smash her nail she did not have any change in color of the nailbed. She was sent from work for evaluation of injury and workplace injury workup including drug test. She denies any history of injury or surgery to this thumb. Complaint: Injury to:: right, finger -: hour(s) Other Injuries: none Place: work - Related Data Home Medications Medication Instructions Recorded Confirmed Acetaminophen Oral Susp [Tylenol 640 mg PO Q4-6H PRN 03/16/19 03/16/19 Oral Susp] methylPREDNISolone Dose Pack See Taper PO DIRECTED 03/16/19 03/16/19 [Medrol Dose Pack] Allergies Allergy/AdvReac Type Severity Reaction Status Date / Time bacitracin Allergy Rash/Hives Verified 08/01/19 04:48 [From Neosporin ([id number])] morphine Allergy Itching Verified 08/01/19 04:48 neomycin Allergy Rash/Hives Verified 08/01/19 04:48 [From Neosporin ([id number])] Penicillins Allergy Rash/Hives Verified 08/01/19 04:48 polymyxin B Allergy Rash/Hives Verified 08/01/19 04:48 [From Neosporin ([id number])] adhesive tape AdvReac BLISTERS Verified 08/01/19 04:48 cephalexin monohydrate AdvReac Nausea & Verified 08/01/19 04:48 [From Keflex] Vomiting & Diarrhea Review of Systems ROS Statement: Those systems with pertinent positive or pertinent negative responses have been documented in the HPI. ROS Other: All systems not noted in ROS Statement are negative. Past Medical History Past Medical History: Thyroid Disorder History of Any Multi-Drug Resistant Organisms: None Reported Past Surgical History: Adenoidectomy, Appendectomy, Section, Cholecystectomy, Hernia Repair, Tubal Ligation Past Anesthesia/Blood Transfusion Reactions: No Reported Reaction Additional Past Anesthesia/Blood Transfusion Reaction / Comment(s): TO LONGER WAKING UP " Past Psychological History: No Psychological Hx Reported Smoking Status: Former smoker Past Alcohol Use History: None Reported Past Drug Use History: None Reported - Past Family History Mother Family Medical History: No Reported History General Exam - General Exam Comments Initial Comments: Physical Exam GENERAL: Patient is well-developed and well-nourished. Patient is nontoxic and well- hydrated and is in no distress. HENT: Normocephalic, Atraumatic. EYES: PERRL, EOMI PULMONARY: Unlabored respirations. No audible rales rhonchi or wheezing was noted. CARDIOVASCULAR: There is a regular rate and rhythm without any murmurs gallops or rubs. ABDOMEN: Soft and nontender with normal bowel sounds. SKIN: Skin is clear with no lesions or rashes and otherwise unremarkable. : Deferred NEUROLOGIC: Patient is alert and oriented x3. Moving all extremities spontaneously MUSCULOSKELETAL: There is swelling of the right thumb with no obvious deformity, no skin injury, significant contusion PSYCHIATRIC: Normal psychiatric evaluation. Limitations: no limitations Course Vital Signs 08/01/19 08/01/19 04:45 06:24 Temperature 97.9 F 97.9 F Pulse Rate 89 67 Respiratory 16 18 Rate Blood Pressure 129/85 133/76 O2 Sat by Pulse 97 99 Oximetry Procedures - Orthopedic Splinting/Casting Injury #1 Side: right Upper Extremity Injury Location: finger Upper Extremity Immobilizer: aluminum form splint Medical Decision Making - Medical Decision Making Patient was seen and evaluated history is obtained from the patient, x-rays were obtained which revealed no obvious bony injury. Patient does have a large bruise to this thumb. Given the patient's pain we will splint the finger for support advised follow-up with primary care physician for reevaluation. All questions pertaining care were answered return parameters discussed patient was discharged home in stable condition. Disposition Clinical Impression: Pain of right thumb Disposition: HOME SELF-CARE Condition: Stable Instructions (If sedation given, give patient instructions): Finger Sprain (ED) Is patient prescribed a controlled substance at d/c from ED?: No Referrals: Maddie Balderrama MD [Primary Care Provider] - 1-2 days
--- NOTE | 2019-08-01 05:39 | XR ---
EXAM: XR Right Hand Complete, 3 or More Views CLINICAL HISTORY: Its. reason XR Reason: smashed thumb TECHNIQUE: Frontal, lateral and oblique views of the right hand. COMPARISON: No relevant prior studies available. FINDINGS: Bones/joints: Unremarkable. No acute fracture. No dislocation. Soft tissues: Unremarkable. No radiopaque foreign body. IMPRESSION: No acute bony abnormality.
[2019-08-01 06:25] VITALS: BP 133/76; PULSE 67; RESP 18
== END 2019-08-01 06:25 | disposition home or self-care (01) ==
LOC: EC 04:40
DX: S60.011A Contusion of right thumb without damage to nail, initial encounter (principal); Z87.891 Personal history of nicotine dependence; Z88.0 Allergy status to penicillin; Z88.1 Allergy status to other antibiotic agents; Z88.5 Allergy status to narcotic agent; Z91.048 Other nonmedicinal substance allergy status; W31.89XA Contact with other specified machinery, initial encounter; Y93.89 Activity, other specified; Y92.69 Other specified industrial and construction area as the place of occurrence of the external cause; Y99.0 Civilian activity done for income or pay
CPT/HCPCS: 99283

== ENCOUNTER → 2019-08-02 | Outpatient (CLI) | payer BC ==
--- NOTE | 2019-08-02 13:54 | US ---
EXAMINATION TYPE: US kidneys/renal and bladder DATE OF EXAM: 08/02/2019 COMPARISON: NONE CLINICAL HISTORY: 44-year-old female R31.9 Hematuria. TECHNIQUE: Multiple sonographic images of the kidneys and bladder are obtained. FINDINGS: EXAM MEASUREMENTS: Right Kidney: 10.3 x 5.9 x 4.9 cm Left Kidney: 11.1 x 5.4 x 4.9 cm No hydronephrosis on either side. No gross abnormality of the partially urine distended bladder. Both ureteral jets are visualized. Post Void Residual Volume: 25.4 mL IMPRESSION: No hydronephrosis. Increased postvoid bladder volume of 25 mL still falls within acceptable limits.
== END | disposition home or self-care (01) ==
LOC: RADUSWWP 09:43
PROVIDERS: ATTEND Family Medicine
DX: R31.9 Hematuria, unspecified (principal)
CPT/HCPCS: 76770

== ENCOUNTER → 2020-08-15 | Outpatient (CLI) | payer BC | END | disposition home or self-care (01) | LOC: LABWHC1 15:39 | PROVIDERS: ATTEND Family Medicine | DX: Z20.828 Contact with and (suspected) exposure to other viral communicable diseases (principal) | CPT/HCPCS: U0003; C9803 ==

== ENCOUNTER 2020-09-28 18:58 | Emergency (ER) | payer BC ==
[2020-09-28 19:05] VITALS: BP 138/88; PULSE 79; RESP 20; TEMP 98.1
--- NOTE | 2020-09-28 19:26 | XR ---
EXAMINATION TYPE: XR foot complete LT DATE OF EXAM: 09/28/2020 COMPARISON: NONE HISTORY: Pain TECHNIQUE: 3 views FINDINGS: Metatarsals are intact. I see no fracture nor dislocation. Joint spaces are normal. There a re no pathologic calcifications IMPRESSION: Negative left foot exam. The toes appear intact.
--- NOTE | 2020-09-28 19:34 | ED ---
Lower Extremity Injury HPI - General Chief Complaint: Extremity Injury, Lower Stated Complaint: foot injury Time Seen by Provider: 09/28/20 19:06 Source: patient Mode of arrival: ambulatory Limitations: no limitations - History of Present Illness Initial Comments: Patient is a 45-year-old female presenting to the emergency Department with complaints of a toe injury 1 hour ago. Patient states she actually kicked a side table and injured her left fourth toe. Patient states she's been having a hard time moving and wanted to make sure it wasn't broken. She denies any previous injuries, fractures or surgeries to left foot. She denies any other complaints or pain at this time. - Related Data Home Medications Medication Instructions Recorded Confirmed Acetaminophen Oral Susp [Tylenol 640 mg PO Q4-6H PRN 03/16/19 03/16/19 Oral Susp] methylPREDNISolone Dose Pack See Taper PO DIRECTED 03/16/19 03/16/19 [Medrol Dose Pack] Allergies Allergy/AdvReac Type Severity Reaction Status Date / Time bacitracin Allergy Rash/Hives Verified 09/28/20 19:05 [From Neosporin ([id number])] morphine Allergy Itching Verified 09/28/20 19:05 neomycin Allergy Rash/Hives Verified 09/28/20 19:05 [From Neosporin ([id number])] Penicillins Allergy Rash/Hives Verified 09/28/20 19:05 polymyxin B Allergy Rash/Hives Verified 09/28/20 19:05 [From Neosporin ([id number])] adhesive tape AdvReac BLISTERS Verified 09/28/20 19:05 cephalexin monohydrate AdvReac Nausea & Verified 09/28/20 19:05 [From Keflex] Vomiting & Diarrhea Review of Systems ROS Statement: Those systems with pertinent positive or pertinent negative responses have been documented in the HPI. ROS Other: All systems not noted in ROS Statement are negative. Past Medical History Past Medical History: Thyroid Disorder History of Any Multi-Drug Resistant Organisms: None Reported Past Surgical History: Adenoidectomy, Appendectomy, Section, Cholecystectomy, Hernia Repair, Tubal Ligation Past Anesthesia/Blood Transfusion Reactions: No Reported Reaction Additional Past Anesthesia/Blood Transfusion Reaction / Comment(s): TO LONGER WAKING UP " Past Psychological History: No Psychological Hx Reported Smoking Status: Never smoker Past Alcohol Use History: None Reported Past Drug Use History: None Reported - Past Family History Mother Family Medical History: No Reported History General Exam - General Exam Comments Initial Comments: GENERAL: Patient is well-developed and well-nourished. Patient is nontoxic and in no acute distress. HEAD: Atraumatic, normocephalic. EYES: Pupils equal round and reactive to light, extraocular movements intact, sclera anicteric, conjunctiva are normal. Eyelids were unremarkable. ENT: TMs normal, nares patent, oropharynx clear without exudates. Moist mucous membranes. NECK: Normal range of motion, supple without lymphadenopathy or JVD. LUNGS: Unlabored respirations. Breath sounds clear to auscultation bilaterally and equal. No wheezes rales or rhonchi. HEART: Regular rate and rhythm without murmurs, rubs or gallops. ABDOMEN: Soft, nontender, normoactive bowel sounds. No guarding, no rebound. No masses appreciated. : Deferred MUSCULOSKELETAL: Patient has pain with palpation of the fourth digit on the left foot. There is some mild erythema and very mild swelling to the area, no obvious deformity. No pain of the left foot. She is neurovascular intact. No clubbing or cyanosis. NEUROLOGICAL: Patient is alert and oriented x 3. Normal speech, normal gait. PSYCH: Normal mood, normal affect. SKIN: Warm, Dry, normal turgor, no rashes or lesions noted. Limitations: no limitations Course Vital Signs 09/28/20 19:02 Temperature 98.1 F Pulse Rate 79 Respiratory 20 Rate Blood Pressure 138/88 O2 Sat by Pulse 99 Oximetry Medical Decision Making - Medical Decision Making Patient is a 45-year-old female here with a left fourth toe injury after taking a table. X-rays reveal no acute fractures dislocations. Discussed with patient this is most likely a contusion. Recommend ice, ibuprofen for discomfort. If symptoms persist after 1-2 weeks, follow-up with family doctor or orthopedics for further evaluation. Patient is agreement with this plan of care. She is stable for discharge. Disposition Clinical Impression: Contusion of toe, left Disposition: HOME SELF-CARE Condition: Stable Instructions (If sedation given, give patient instructions): Foot Contusion (ED) Additional Instructions: Please return to the Emergency Department if symptoms worsen or any other concerns. X-ray is negative for fractures. Use ice to the toe, ibuprofen for discomfort. Follow-up with your regular doctor or orthopedics if symptoms persist after 1-2 weeks. Is patient prescribed a controlled substance at d/c from ED?: No Referrals: Maddie Balderrama MD [Primary Care Provider] - 1-2 days
== END 2020-09-28 19:47 | disposition home or self-care (01) ==
LOC: EC 18:58
DX: S90.122A Contusion of left lesser toe(s) without damage to nail, initial encounter (principal); Z79.51 Long term (current) use of inhaled steroids; Z88.1 Allergy status to other antibiotic agents; Z88.5 Allergy status to narcotic agent; Z88.0 Allergy status to penicillin; Z91.048 Other nonmedicinal substance allergy status; W22.8XXA Striking against or struck by other objects, initial encounter; Y92.009 Unspecified place in unspecified non-institutional (private) residence as the place of occurrence of the external cause
CPT/HCPCS: 99283

== ENCOUNTER 2021-11-05 01:36 | Emergency (ER) | payer BC ==
[2021-11-05 02:31] VITALS: RESP 16
[2021-11-05] MEDS ORDERED: SODIUM CHLORIDE 0.9% 500 ML 500 ML IV STA (02:35)
[2021-11-05] MEDS ORDERED: IBUPROFEN 600 MG TAB PO STA (02:35)
[2021-11-05] MEDS ORDERED: ACETAMINOPHEN TAB 325 MG TAB PO STA (02:35)
[2021-11-05] MEDS ORDERED: TRANEXAMIC ACID 1,000 MG in SODIUM CHLORIDE 0.9% 100 ML IVPB ONE (02:45)
[2021-11-05 02:49] LABS: Appearance,Urine Cloudy (Clear); Bilirubin,Urine Negative (Negative); Blood,Urine Large (Negative); Color,Urine Red; Glucose,Urine (UA) Negative (Negative); Ketones,Urine Trace (Negative); Leukocyte Esterase,Urine Moderate (Negative); Nitrite,Urine Negative (Negative); PH, Urine 6.5 (5.0-8.0); Protein,Urine 2+ (Negative); RBC,Urine >182 /hpf (0-5); Specific Gravity,Urine 1.012 (1.001-1.035); Urobilinogen,Urine <2.0 mg/dL (<2.0); WBC,Urine >182 /hpf (0-5)
[2021-11-05 03:07] LABS: Basophils % (A) 1 %; Eosinophils # (A) 0.2 k/uL (0-0.7); Eosinophils % (A) 3 %; HCT 33.8 % (34.0-46.0); Lymphocytes # (A) 2.2 k/uL (1.0-4.8); Lymphocytes % (A) 32 %; MCH 29.6 pg (25.0-35.0); MCHC 32.5 g/dL (31.0-37.0); MCV 91.2 fL (80.0-100.0); Mean Platelet Volume 7.3; Monocytes # (A) 0.3 k/uL (0-1.0); Monocytes % (A) 4 %; Neutrophils # (A) 3.9 k/uL (1.3-7.7); Neutrophils % (A) 57 %; Platelet Count 343 k/uL (150-450); RBC 3.71 m/uL (3.80-5.40); RDW 14.5 % (11.5-15.5); WBC 6.9 k/uL (3.8-10.6)
[2021-11-05 03:16] LABS: INR 0.9 (<1.2); Partial Thromboplastin Time 24.3 sec (22.0-30.0); Prothrombin Time 9.9 sec (9.0-12.0)
[2021-11-05 03:20] LABS: ALT 12 U/L (4-34); AST 22 U/L (14-36); African American GFR (CKD) >90 (>60 ml/min/1.73 sqM); Albumin 4.1 g/dL (3.5-5.0); Alkaline Phosphatase 81 U/L (38-126); Anion Gap 6 mmol/L; Blood Urea Nitrogen 10 mg/dL (7-17); Calcium 9.2 mg/dL (8.4-10.2); Carbon Dioxide 27 mmol/L (22-30); Chloride 105 mmol/L (98-107); Glucose 107 mg/dL (74-99); Non-African American GFR(CKD) >90 (>60 ml/min/1.73 sqM); Potassium 4.2 mmol/L (3.5-5.1); Sodium 138 mmol/L (137-145); Total Bilirubin 0.3 mg/dL (0.2-1.3)
--- NOTE | 2021-11-05 03:38 | ED ---
Female Urogenital HPI - General Chief complaint: Vaginal Bleeding Stated complaint: Vaginal Bleeding Time Seen by Provider: 11/05/21 02:12 Source: patient Mode of arrival: ambulatory - History of Present Illness Initial comments: This patient is a 46-year-old woman who presents to be evaluated for vaginal bleeding and not feeling well. The patient states that going back a number weeks she has had prolonged vaginal bleeding. Today she has gone through approximate 6-8 pads and is having moderate sized clots. She states that on Tuesday she is scheduled to have endometrial biopsy. Tonight she is also having some associated headache. Is not worst headache of life. No neurologic symptoms or signs. No fever or chills. No neck stiffness. MD Complaint: vaginal bleeding -: week(s) Location: suprapubic Radiation: non-radiating Severity: mild Quality: cramping Consistency: intermittent Improves with: none Worsens with: none Patient : No - Related Data Home Medications Medication Instructions Recorded Confirmed Ciclopirox Olamine [Ciclopirox 1 applic TOPICAL DAILY PRN 09/28/20 09/28/20 0.77% Topical Susp.] Loratadine [Claritin] 10 mg PO DAILY 09/28/20 09/28/20 Allergies Allergy/AdvReac Type Severity Reaction Status Date / Time adhesive tape Allergy BLISTERS Verified 11/05/21 02:02 bacitracin Allergy Rash/Hives Verified 11/05/21 02:02 [From Neosporin ([id number])] morphine Allergy Itching Verified 11/05/21 02:02 neomycin Allergy Rash/Hives Verified 11/05/21 02:02 [From Neosporin ([id number])] Penicillins Allergy Rash/Hives Verified 11/05/21 02:02 polymyxin B Allergy Rash/Hives Verified 11/05/21 02:02 [From Neosporin ([id number])] cephalexin monohydrate AdvReac Nausea & Verified 11/05/21 02:02 [From Keflex] Vomiting & Diarrhea Review of Systems ROS Statement: Those systems with pertinent positive or pertinent negative responses have been documented in the HPI. ROS Other: All systems not noted in ROS Statement are negative. Constitutional: Denies: fever, chills, weakness Eyes: Denies: eye pain, vision change Respiratory: Denies: cough, dyspnea Cardiovascular: Denies: chest pain, palpitations Gastrointestinal: Reports: abdominal pain (Suprapubic cramping). Denies: nausea, vomiting, diarrhea, constipation, melena, hematochezia Genitourinary: Reports: abnormal menses. Denies: dysuria, hematuria, discharge Musculoskeletal: Denies: back pain Skin: Denies: rash Neurological: Denies: headache, weakness, numbness Hematological/Lymphatic: Denies: easy bleeding Past Medical History Past Medical History: Thyroid Disorder History of Any Multi-Drug Resistant Organisms: None Reported Past Surgical History: Adenoidectomy, Appendectomy, Section, Cholecystectomy, Hernia Repair, Tubal Ligation Past Anesthesia/Blood Transfusion Reactions: No Reported Reaction Additional Past Anesthesia/Blood Transfusion Reaction / Comment(s): TO LONGER WAKING UP " Past Psychological History: No Psychological Hx Reported Smoking Status: Never smoker Past Alcohol Use History: None Reported Past Drug Use History: None Reported - Past Family History Mother Family Medical History: No Reported History General Exam General appearance: alert, in no apparent distress Head exam: Present: atraumatic, normocephalic Eye exam: Present: normal appearance. Absent: scleral icterus, conjunctival injection ENT exam: Present: normal oropharynx Neck exam: Present: normal inspection Respiratory exam: Present: normal lung sounds bilaterally. Absent: respiratory distress, wheezes, rales, rhonchi, stridor Cardiovascular Exam: Present: regular rate, normal rhythm, normal heart sounds. Absent: systolic murmur, diastolic murmur, rubs, gallop GI/Abdominal exam: Present: soft. Absent: distended, tenderness, guarding, rebound, rigid, organomegaly, mass, pulsatile mass Extremities exam: Present: normal inspection, normal capillary refill. Absent: pedal edema, calf tenderness Back exam: Present: normal inspection. Absent: CVA tenderness (R), CVA tenderness (L) Neurological exam: Present: alert Skin exam: Present: warm, dry, intact, normal color. Absent: rash Course Vital Signs 11/05/21 11/05/21 01:57 02:01 Temperature 97.8 F 98.5 F Pulse Rate 80 83 Respiratory 19 16 Rate Blood Pressure 134/92 134/90 O2 Sat by Pulse 97 96 Oximetry Medical Decision Making - Medical Decision Making After the patient's labs were returned I discussed the results with her. The patient at this point declined to have any treatment for the uterine bleeding. She declined tics a. She declined dose of Premarin. She states she does have follow-up appointments with the legal administrative assistant and will keep that. We discussed appropriate return parameters - Lab Data Result diagrams: 11/05/21 02:53 11/05/21 02:53 Lab Results 11/05/21 11/05/21 11/05/21 Range/Units 02:25 02:53 02:53 WBC 6.9 (3.8-10.6) k/uL RBC 3.71 L (3.80-5.40) m/uL Hgb 11.0 L (11.4-16.0) gm/dL Hct 33.8 L (34.0-46.0) % MCV 91.2 (80.0-100.0) fL MCH 29.6 (25.0-35.0) pg MCHC 32.5 (31.0-37.0) g/dL RDW 14.5 (11.5-15.5) % Plt Count 343 (150-450) k/uL MPV 7.3 Neutrophils % 57 % Lymphocytes % 32 % Monocytes % 4 % Eosinophils % 3 % Basophils % 1 % Neutrophils # 3.9 (1.3-7.7) k/uL Lymphocytes # 2.2 (1.0-4.8) k/uL Monocytes # 0.3 (0-1.0) k/uL Eosinophils # 0.2 (0-0.7) k/uL Basophils # 0.0 (0-0.2) k/uL PT 9.9 (9.0-12.0) sec INR 0.9 (<1.2) APTT 24.3 (22.0-30.0) sec Sodium (137-145) mmol/L Potassium (3.5-5.1) mmol/L Chloride (98-107) mmol/L Carbon Dioxide (22-30) mmol/L Anion Gap mmol/L BUN (7-17) mg/dL Creatinine (0.52-1.04) mg/dL Est GFR (CKD-EPI)AfAm (>60 ml/min/1.73 sqM) Est GFR (CKD-EPI)NonAf (>60 ml/min/1.73 sqM) Glucose (74-99) mg/dL Calcium (8.4-10.2) mg/dL Total Bilirubin (0.2-1.3) mg/dL AST (14-36) U/L ALT (4-34) U/L Alkaline Phosphatase (38-126) U/L Total Protein (6.3-8.2) g/dL Albumin (3.5-5.0) g/dL Urine Color Red Urine Appearance Cloudy H (Clear) Urine pH 6.5 (5.0-8.0) Ur Specific [place] 1.012 (1.001-1.035) Urine Protein 2+ H (Negative) Urine Glucose (UA) Negative (Negative) Urine Ketones Trace H (Negative) Urine Blood Large H (Negative) Urine Nitrite Negative (Negative) Urine Bilirubin Negative (Negative) Urine Urobilinogen <2.0 (<2.0) mg/dL Ur Leukocyte Esterase Moderate H (Negative) Urine RBC >182 H (0-5) /hpf Urine WBC >182 H (0-5) /hpf 11/05/21 Range/Units 02:53 WBC (3.8-10.6) k/uL RBC (3.80-5.40) m/uL Hgb (11.4-16.0) gm/dL Hct (34.0-46.0) % MCV (80.0-100.0) fL MCH (25.0-35.0) pg MCHC (31.0-37.0) g/dL RDW (11.5-15.5) % Plt Count (150-450) k/uL MPV Neutrophils % % Lymphocytes % % Monocytes % % Eosinophils % % Basophils % % Neutrophils # (1.3-7.7) k/uL Lymphocytes # (1.0-4.8) k/uL Monocytes # (0-1.0) k/uL Eosinophils # (0-0.7) k/uL Basophils # (0-0.2) k/uL PT (9.0-12.0) sec INR (<1.2) APTT (22.0-30.0) sec Sodium 138 (137-145) mmol/L Potassium 4.2 (3.5-5.1) mmol/L Chloride 105 (98-107) mmol/L Carbon Dioxide 27 (22-30) mmol/L Anion Gap 6 mmol/L BUN 10 (7-17) mg/dL Creatinine 0.70 (0.52-1.04) mg/dL Est GFR (CKD-EPI)AfAm >90 (>60 ml/min/1.73 sqM) Est GFR (CKD-EPI)NonAf >90 (>60 ml/min/1.73 sqM) Glucose 107 H (74-99) mg/dL Calcium 9.2 (8.4-10.2) mg/dL Total Bilirubin 0.3 (0.2-1.3) mg/dL AST 22 (14-36) U/L ALT 12 (4-34) U/L Alkaline Phosphatase 81 (38-126) U/L Total Protein 7.0 (6.3-8.2) g/dL Albumin 4.1 (3.5-5.0) g/dL Urine Color Urine Appearance (Clear) Urine pH (5.0-8.0) Ur Specific [place] (1.001-1.035) Urine Protein (Negative) Urine Glucose (UA) (Negative) Urine Ketones (Negative) Urine Blood (Negative) Urine Nitrite (Negative) Urine Bilirubin (Negative) Urine Urobilinogen (<2.0) mg/dL Ur Leukocyte Esterase (Negative) Urine RBC (0-5) /hpf Urine WBC (0-5) /hpf Disposition Clinical Impression: Dysfunctional uterine bleeding Disposition: HOME SELF-CARE Condition: Good Instructions (If sedation given, give patient instructions): Dysmenorrhea (ED) Is patient prescribed a controlled substance at d/c from ED?: No Referrals: Maddie Balderrama MD [Primary Care Provider] - 1-2 days Gerardo Raza DO [Doctor of Osteopathic Medicine] - 1-2 days
[2021-11-05 03:44] VITALS: BP 132/78; PULSE 77; TEMP 98.1
== END 2021-11-05 03:44 | disposition home or self-care (01) ==
LOC: EC 01:36
DX: N93.8 Other specified abnormal uterine and vaginal bleeding (principal)
CPT/HCPCS: 36415; 80053; 81001; 85025; 85610; 85730; 87086; 99284

== ENCOUNTER 2021-11-12 07:38 | Day surgery (SDC) | payer BC ==
[2021-11-11 09:15] VITALS: BMI 31.3
--- NOTE | 2021-11-11 16:56 | P.HPOB ---
History of Present Illness H&P Date: 11/11/21 Chief Complaint: menorrhagia 46 year old presents for D&C hysteroscopy and endometrial ablation with NovaSure. Review of Systems All systems: negative Constitutional: Denies chills, Denies fever Eyes: denies blurred vision, denies pain Ears, nose, mouth and throat: Denies headache, Denies sore throat Cardiovascular: Denies chest pain, Denies shortness of breath Respiratory: Denies cough Gastrointestinal: Denies abdominal pain, Denies diarrhea, Denies nausea, Denies vomiting Genitourinary: Denies dysuria, Denies hematuria Musculoskeletal: Denies myalgias Integumentary: Denies pruritus, Denies rash Neurological: Denies numbness, Denies weakness Psychiatric: Denies anxiety, Denies depression Endocrine: Denies fatigue, Denies weight change Past Medical History Past Medical History: Thyroid Disorder Additional Past Medical History / Comment(s): HEAVY BLEEDING History of Any Multi-Drug Resistant Organisms: None Reported Past Surgical History: Adenoidectomy, Appendectomy, Section, Cholecystectomy, Hernia Repair, Tubal Ligation Past Anesthesia/Blood Transfusion Reactions: No Reported Reaction Additional Past Anesthesia/Blood Transfusion Reaction / Comment(s): TO LONGER WAKING UP " Smoking Status: Former smoker - Past Family History Mother Family Medical History: No Reported History Medications and Allergies Home Medications Medication Instructions Recorded Confirmed Type No Known Home Medications 11/11/21 11/11/21 History Allergies Allergy/AdvReac Type Severity Reaction Status Date / Time adhesive tape Allergy BLISTERS Verified 11/11/21 09:06 bacitracin Allergy Rash/Hives Verified 11/11/21 09:06 [From Neosporin ([id number])] morphine Allergy Itching Verified 11/11/21 09:06 neomycin Allergy Rash/Hives Verified 11/11/21 09:06 [From Neosporin ([id number])] Penicillins Allergy Rash/Hives Verified 11/11/21 09:06 polymyxin B Allergy Rash/Hives Verified 11/11/21 09:06 [From Neosporin ([id number])] cephalexin monohydrate AdvReac Nausea & Verified 11/11/21 09:06 [From Keflex] Vomiting & Diarrhea Exam Osteopathic Statement: *. No significant issues noted on an osteopathic structural exam other than those noted in the History and Physical/Consult. Intake and Output 11/11/21 11/11/21 11/11/21 06:59 14:59 22:59 Other: Weight 80.286 kg HEart: RRR Lungs: CTAB Abdomen: soft, nontender Extremeties: neg samm's Assessment and Plan (1) Menorrhagia Status: Acute Code(s): N92.0 - EXCESSIVE AND FREQUENT MENSTRUATION WITH REGULAR CYCLE SNOMED Code(s): 226222525 Plan: 1. D&C hysteroscopy and endometrial ablation with NovaSure
[~2021-11-12 07:38] MED LIST changes: -FAMOTIDINE 20 MG/2 ML VIAL IV ONE; -LACTATED RINGERS 1,000 ML IV SCH; +LIDOCAINE 1% (10MG/ML) FOR IV START INTRADERMA PRN; -LIDOCAINE 1% 20 ML VIAL (10MG/ML) FOR IV START INTRADERMA PRN; -OXYMETAZOLINE 0.05% NASL SPRAY 1 SPRAY BOTTLE NASAL ONE; +Pre Op ABX Message 1 EACH MISC MISCELLANE ONE; +SCOPOLAMINE 1.5MG/72HR PATCH TRANSDERM ONE; +fentaNYL (PF) 50 MCG/ML 2 ML AMP IV PRN
[2021-11-12] MEDS: LACTATED RINGERS 1,000 ML IV SCH ×2 (08:27→08:54)
[2021-11-12] MEDS ORDERED: SUCCINYLCHOLINE CHLORIDE 100 MG/5 ML SYR IV ONE (08:49)
[2021-11-12] MEDS ORDERED: PROPOFOL 10 MG/ML 20 ML VIAL IV ONE (08:49)
[2021-11-12] MEDS ORDERED: LIDOCAINE 1% INJ 10MG/ML (20 ML MDV) ONE (08:49)
[2021-11-12] MEDS ORDERED: MIDAZOLAM 2 MG/2 ML VIAL ONE (08:49)
[2021-11-12] MEDS ORDERED: fentaNYL (PF) 50 MCG/ML 2 ML AMP ONE (08:49)
--- NOTE | 2021-11-12 09:29 | P.OP ---
Date of Procedure: 11/12/21 Preoperative Diagnosis: 1. menorrhagia Postoperative Diagnosis: 1. menorrhagia Procedure(s) Performed: D&C hysteroscopy, endometrial ablation with NovaSure Anesthesia: GENE Surgeon: Kajal Harris Estimated Blood Loss (ml): 3 IV fluids (ml): 500 Urine output (ml): 200 Pathology: other (endometrial currettings) Condition: stable Disposition: PACU Operative Findings: cavity length 6cm, width 4.4cm, power 145 W, time of ablation 35 seconds Description of Procedure: Patient is taken the operating room where general anesthesia was obtained without difficulty. She was prepped and draped in normal sterile fashion dorsal lithotomy position, legs placed in the [place] cane stirrups. Bladder was drained of all urine. Weighted speculum placed in the vagina and the anterior lip the cervix was grasped with serial tooth tenaculum. The uterus sounded to 8 cm and the cervix under 2 cm making the cavity length 6 cm. The cervix was dilated to #8 Hegar dilator. Hysteroscopy was then performed. Both ostia were visualized and there was a smooth contour of the uterus. Sharp curet was then gently used to obtain endometrial curettings. The NovaSure was introduced into the uterus with a cavity length of 6 cm, width 4.4 cm. after cavity assessment was passed, the time of ablation was 36 seconds at 145 W. Hysteroscopy was again performed and adequate ablation was noted. All instruments removed from the vagina. Patient tolerated the procedure well, sponge and instrument counts were correct 2 and she was taken to recovery in stable condition.
[2021-11-12 09:56] VITALS: TEMP 97.8
[2021-11-12] MEDS ORDERED: KETOROLAC 15 MG/ML 1 ML VIAL IVP ONE (09:58)
[2021-11-12 10:44] VITALS: BP 116/79; PULSE 74; RESP 16
== END 2021-11-12 11:07 | disposition home or self-care (01) ==
LOC: OR 07:38
PROVIDERS: ATTEND Obstetrics & Gynecology
DX: N93.8 Other specified abnormal uterine and vaginal bleeding (principal); Z87.891 Personal history of nicotine dependence
CPT/HCPCS: 58563; 81025; 88305; J2250; J1100; J2405; J2001; J3010; J1885; J0330; J2704

== ENCOUNTER 2022-05-05 05:14 | Emergency (ER) | payer BC ==
[2022-05-05 05:58] LABS: Anisocytosis Slight; Basophils # (A) 0.1 k/uL (0-0.2); Basophils % (A) 1 %; Eosinophils # (A) 0.2 k/uL (0-0.7); Eosinophils % (A) 3 %; HCT 43.5 % (34.0-46.0); HGB 13.6 gm/dL (11.4-16.0); Hypochromasia Slight; Lymphocytes # (A) 1.8 k/uL (1.0-4.8); Lymphocytes % (A) 33 %; MCH 25.7 pg (25.0-35.0); MCHC 31.3 g/dL (31.0-37.0); MCV 82.2 fL (80.0-100.0); Mean Platelet Volume 7.2; Microcytosis Slight; Monocytes # (A) 0.4 k/uL (0-1.0); Monocytes % (A) 7 %; Neutrophils # (A) 3.1 k/uL (1.3-7.7); Neutrophils % (A) 55 %; Platelet Count 269 k/uL (150-450); RBC 5.29 m/uL (3.80-5.40); RDW 17.6 % (11.5-15.5); WBC 5.6 k/uL (3.8-10.6)
[2022-05-05 06:10] LABS: ALT 14 U/L (4-34); AST 26 U/L (14-36); African American GFR (CKD) >90 (>60 ml/min/1.73 sqM); Albumin 4.2 g/dL (3.5-5.0); Alkaline Phosphatase 81 U/L (38-126); Anion Gap 7 mmol/L; Blood Urea Nitrogen 7 mg/dL (7-17); Calcium 8.8 mg/dL (8.4-10.2); Carbon Dioxide 28 mmol/L (22-30); Chloride 104 mmol/L (98-107); Glucose 86 mg/dL (74-99); Non-African American GFR(CKD) >90 (>60 ml/min/1.73 sqM); Potassium 3.6 mmol/L (3.5-5.1); Sodium 139 mmol/L (137-145); Total Bilirubin 0.2 mg/dL (0.2-1.3); Total Protein 7.2 g/dL (6.3-8.2)
--- NOTE | 2022-05-05 07:23 | ED ---
Chest Pain HPI - General Chief Complaint: Chest Pain Stated Complaint: Covid +, chest tightness Time Seen by Provider: 05/05/22 05:37 Source: patient Mode of arrival: ambulatory - History of Present Illness Initial Comments: This patient is a 47-year-old woman presenting to have evaluation for chest discomfort and palpitations. She states that she had been in her usual state of health until Tuesday when she was feeling hot and cold. She was having some upper respiratory symptoms. Patient took a home covert test that was positive. She sought care at a local urgent care but they're test was negative. Patient states that she went home and then a send out test and subsequently called her with the positive result. MD Complaint: chest pain -: hour(s) Onset: during rest Pain Location: substernal Pain Radiation: none Severity: mild Consistency: intermittent Improves With: nothing Worsens With: nothing Other Symptoms: palpitations Treatments Prior to Arrival: none - Related Data Previous Rx's Medication Instructions Recorded Ibuprofen [Children's Advil] 600 mg PO Q8H #500 ml 11/12/21 Allergies Allergy/AdvReac Type Severity Reaction Status Date / Time adhesive tape Allergy BLISTERS Verified 05/05/22 05:26 bacitracin Allergy Rash/Hives Verified 05/05/22 05:26 [From Neosporin ([id number])] morphine Allergy Itching Verified 05/05/22 05:26 neomycin Allergy Rash/Hives Verified 05/05/22 05:26 [From Neosporin ([id number])] Penicillins Allergy Rash/Hives Verified 05/05/22 05:26 polymyxin B Allergy Rash/Hives Verified 05/05/22 05:26 [From Neosporin ([id number])] cephalexin monohydrate AdvReac Nausea & Verified 05/05/22 05:26 [From Keflex] Vomiting & Diarrhea Review of Systems ROS Statement: Those systems with pertinent positive or pertinent negative responses have been documented in the HPI. ROS Other: All systems not noted in ROS Statement are negative. Constitutional: Reports: fever, chills ENT: Reports: throat pain Respiratory: Reports: cough Cardiovascular: Denies: chest pain, palpitations, edema, syncope Gastrointestinal: Denies: abdominal pain, vomiting, diarrhea Genitourinary: Denies: dysuria Musculoskeletal: Denies: back pain Skin: Denies: rash Neurological: Reports: headache. Denies: weakness, numbness, paresthesias EKG Findings - EKG Results: EKG: interpreted by ERMD, sinus rhythm, normal axis, normal ST/T EKG shows: bradycardia (Rate 59 bpm) - Blocks, [place], Hypertrophy, ST Abn: QRS axis and voltage: low voltage (<0.5 MV total QRS and <1.0 MV in each precordial lead) Past Medical History Past Medical History: Thyroid Disorder Additional Past Medical History / Comment(s): HEAVY BLEEDING History of Any Multi-Drug Resistant Organisms: None Reported Past Surgical History: Adenoidectomy, Appendectomy, Section, Cholecystectomy, Hernia Repair, Tubal Ligation Additional Past Surgical History / Comment(s): ablation nov 24 Past Anesthesia/Blood Transfusion Reactions: No Reported Reaction Additional Past Anesthesia/Blood Transfusion Reaction / Comment(s): TO LONGER WAKING UP " Past Psychological History: No Psychological Hx Reported Smoking Status: Former smoker Past Alcohol Use History: None Reported Past Drug Use History: None Reported - Past Family History Mother Family Medical History: No Reported History General Exam General appearance: alert, in no apparent distress Head exam: Present: atraumatic, normocephalic Eye exam: Present: normal appearance. Absent: scleral icterus, conjunctival injection Respiratory exam: Present: normal lung sounds bilaterally, chest wall tenderness. Absent: respiratory distress, wheezes, rales, rhonchi, stridor Cardiovascular Exam: Present: regular rate, normal rhythm, normal heart sounds. Absent: systolic murmur, diastolic murmur, rubs, gallop GI/Abdominal exam: Present: soft. Absent: distended, tenderness, guarding, rebound, mass Extremities exam: Present: normal inspection, normal capillary refill. Absent: pedal edema, calf tenderness Back exam: Present: normal inspection. Absent: CVA tenderness (R), CVA tenderness (L) Neurological exam: Present: alert Skin exam: Present: warm, dry, intact, normal color. Absent: rash Course Vital Signs 05/05/22 05:21 Temperature 98.2 F Pulse Rate 70 Respiratory 19 Rate Blood Pressure 112/79 O2 Sat by Pulse 99 Oximetry Disposition Clinical Impression: Chest pain, COVID-19, Palpitations Disposition: HOME SELF-CARE Condition: Good Instructions (If sedation given, give patient instructions): Chest Pain (ED), COVID-19 (Coronavirus Disease 2019) (ED) Is patient prescribed a controlled substance at d/c from ED?: No Referrals: None,Stated [Primary Care Provider] - 1-2 days
[2022-05-05 08:00] VITALS: BP 110/87; PULSE 76; RESP 18; TEMP 97.7
== END 2022-05-05 07:55 | disposition home or self-care (01) ==
LOC: EC 05:14
DX: U07.1 COVID-19 (principal); R00.2 Palpitations; E07.9 Disorder of thyroid, unspecified; Z87.891 Personal history of nicotine dependence; Z88.8 Allergy status to other drugs, medicaments and biological substances; Z88.1 Allergy status to other antibiotic agents; Z88.6 Allergy status to analgesic agent; Z88.0 Allergy status to penicillin
CPT/HCPCS: 36415; 80053; 84484; 85025; 85379; 93005; 99285

== ENCOUNTER → 2023-07-02 | Outpatient (CLI) | payer BC ==
[2023-07-03 07:08] LABS: Basophils # (A) 0.06 X 10*3/uL (0.00-0.10); Basophils % (A) 0.9 %; HCT 43.8 % (37.2-46.3); Lymphocytes # (A) 2.12 X 10*3/uL (0.90-5.00); Lymphocytes % (A) 32.3 %; MCH 28.5 pg (27.0-32.0); MCV 89.2 FL (80.0-97.0); Mean Platelet Volume 9.8 FL (9.5-12.2); Monocytes # (A) 0.48 X 10*3/uL (0.20-1.00); Monocytes % (A) 7.3 %; NRBC Per 100 WBC 0 X 10*3/uL (0.00-0.01); Neutrophils # (A) 3.69 X 10*3/uL (1.80-7.70); Neutrophils % (A) 56.3 %; Platelet Count 271 X 10*3/uL (140-440); RBC 4.91 X 10*6/uL (4.10-5.20); WBC 6.56 X 10*3/uL (4.50-10.00)
[2023-07-03 07:26] LABS: ALT 13 U/L (8-44); AST 17 U/L (13-35); Albumin 4.2 d/dL (3.8-4.9); Albumin/Globulin Ratio 1.83 Ratio (1.60-3.17); Alkaline Phosphatase 74 U/L (41-126); BUN/Creat Ratio 20.12 Ratio (12.00-20.00); Blood Urea Nitrogen 16.1 mg/dL (9.0-27.0); Calcium 9.7 mg/dL (8.7-10.3); Carbon Dioxide 27.5 mmol/L (21.6-31.8); Chloride 105 mmol/L (96-109); Chol/HDL Ratio 2.69 Ratio; Globulin 2.3 d/dL (1.6-3.3); Glucose 87 mg/dL (70-110); LDL Cholesterol,Calculated 100.6 mg/dL (0.0-131.0); Potassium 4.6 mmol/L (3.5-5.5); Sodium 142 mmol/L (135-145); Total Bilirubin 0.3 mg/dL (0.3-1.2); Total Protein 6.5 d/dL (6.2-8.2); VLDL Calculation 11.26 mg/dL (5.00-40.00)
== END | disposition home or self-care (01) ==
LOC: LABWHC1 10:44
PROVIDERS: ATTEND Family Medicine
DX: Z00.00 Encounter for general adult medical examination without abnormal findings (principal)
CPT/HCPCS: 36415; 80053; 80061; 84443; 85025

== ENCOUNTER 2023-07-09 23:08 | Emergency (ER) | payer BC ==
[2023-07-09 23:55] VITALS: RESP 18; TEMP 98.1
--- NOTE | 2023-07-10 02:02 | ED ---
ENT HPI - General Chief complaint: ENT Stated complaint: throat pain Time Seen by Provider: 07/10/23 00:11 Source: patient Mode of arrival: ambulatory Limitations: no limitations - History of Present Illness Initial comments: 48-year-old female presenting with chief complaint of sore throat. Sore throat started today. No difficulty breathing or swallowing. No fevers or chills. No cough, congestion, chest pain, nausea, vomiting. Admits to some mild right- sided ear pain. - Related Data Previous Rx's Medication Instructions Recorded Ibuprofen [Children's Advil] 600 mg PO Q8H #500 ml 11/12/21 Allergies Allergy/AdvReac Type Severity Reaction Status Date / Time adhesive tape Allergy BLISTERS Verified 07/09/23 23:50 bacitracin Allergy Rash/Hives Verified 07/09/23 23:50 [From Neosporin ([id number])] morphine Allergy Itching Verified 07/09/23 23:50 neomycin Allergy Rash/Hives Verified 07/09/23 23:50 [From Neosporin ([id number])] Penicillins Allergy Rash/Hives Verified 07/09/23 23:50 polymyxin B Allergy Rash/Hives Verified 07/09/23 23:50 [From Neosporin ([id number])] cephalexin monohydrate AdvReac Nausea & Verified 07/09/23 23:50 [From Keflex] Vomiting & Diarrhea Review of Systems ROS Statement: Those systems with pertinent positive or pertinent negative responses have been documented in the HPI. ROS Other: All systems not noted in ROS Statement are negative. Past Medical History Past Medical History: Thyroid Disorder Additional Past Medical History / Comment(s): HEAVY BLEEDING History of Any Multi-Drug Resistant Organisms: None Reported Past Surgical History: Adenoidectomy, Appendectomy, Section, Cholecystectomy, Hernia Repair, Tubal Ligation Additional Past Surgical History / Comment(s): ablation nov 24 Past Anesthesia/Blood Transfusion Reactions: No Reported Reaction Additional Past Anesthesia/Blood Transfusion Reaction / Comment(s): TO LONGER WAKING UP " Past Psychological History: No Psychological Hx Reported Smoking Status: Former smoker Past Alcohol Use History: None Reported Past Drug Use History: None Reported - Past Family History Mother Family Medical History: No Reported History General Exam Limitations: no limitations General appearance: alert, in no apparent distress Head exam: Present: atraumatic, normocephalic, normal inspection Eye exam: Present: normal appearance, EOMI ENT exam: Present: mucous membranes moist, TM's normal bilaterally Expanded Mouth exam: Present: tongue normal. Absent: drooling, trismus, muffled voice Throat exam: tonsillar erythema, tonsillomegaly, tonsillar exudate Neck exam: Present: normal inspection, full ROM Respiratory exam: Present: normal lung sounds bilaterally. Absent: respiratory distress, wheezes, rales, rhonchi, stridor Cardiovascular Exam: Present: regular rate, normal rhythm, normal heart sounds. Absent: systolic murmur, diastolic murmur, rubs, gallop, clicks Neurological exam: Present: alert, oriented X3 Psychiatric exam: Present: normal affect, normal mood Skin exam: Present: warm, dry, intact, normal color. Absent: rash Course Vital Signs 07/09/23 07/10/23 23:44 02:09 Temperature 98.1 F Pulse Rate 87 81 Respiratory 18 18 Rate Blood Pressure 134/91 121/82 O2 Sat by Pulse 96 98 Oximetry Medical Decision Making - Medical Decision Making Was pt. sent in by a medical professional or institution (, PA, RESIDENTIAL DOOR INSTALLER, urgent care, hospital, or correction...) When possible be specific @ -No Did you speak to anyone other than the patient for history (EMS, parent, family, police, friend...)? What history was obtained from this source @ -No Did you review nursing and triage notes (agree or disagree)? Why? @ -I reviewed and agree with nursing and triage notes Were old charts reviewed (outside hosp., previous admission, EMS record, old EKG, old radiological studies, urgent care reports/EKG's, correction records)? Report findings @ -No old charts were reviewed Differential Diagnosis (chest pain, altered mental status, abdominal pain women, abdominal pain men, vaginal bleeding, weakness, fever, dyspnea, syncope, headache, dizziness, GI bleed, back pain, seizure, CVA, palpatations, mental health, musculoskeletal)? @ -Differential includes viral pharyngitis, group A strep, mononucleosis, this is not an all-inclusive list EKG interpreted by me (3pts min.). @ -As above X-rays interpreted by me (1pt min.). @ -None done CT interpreted by me (1pt min.). @ -None done U/S interpreted by me (1pt. min.). @ -None done What testing was considered but not performed or refused? (CT, X-rays, U/S, labs)? Why? @ -None What meds were considered but not given or refused? Why? @ -None Did you discuss the management of the patient with other professionals (professionals i.e. Dr., PA, RESIDENTIAL DOOR INSTALLER, lab, RT, psych nurse, social services director, replenishment merchandising associate, teacher, production officer, case repairer)? Give summary @ -No Was smoking cessation discussed for >3mins.? @ -No Was critical care preformed (if so, how long)? @ -No Were there social determinants of health that impacted care today? How? (Homelessness, low income, unemployed, alcoholism, drug addiction, transportation, low edu. Level, literacy, decrease access to med. care, retirement, rehab)? @ -No Was there de-escalation of care discussed even if they declined (Discuss DNR or withdrawal of care, Hospice)? DNR status @ -No What co-morbidities impacted this encounter? (DM, HTN, Smoking, COPD, CAD, Cancer, CVA, ARF, Chemo, Hep., AIDS, mental health diagnosis, sleep apnea, morbid obesity)? @ -None Was patient admitted / discharged? Hospital course, mention meds given and route, prescriptions, significant lab abnormalities, going to OR and other pertinent info. @ -48-year-old female presented chief complaint of sore throat. On physical examination there is bilateral tonsillomegaly with exudates. Negative influenza, RSV, Covid, group A strep. Throat culture is sent out and patient is educated on supportive management. Follow-up with PCP. Report back to ER with any new or worsening symptoms. Discussed return parameters and answered all questions. Patient conveyed verbal understanding and agreed to the plan. I discussed this case in detail with my attending Dr. Murdock Undiagnosed new problem with uncertain prognosis? @ -No Drug Therapy requiring intensive monitoring for toxicity (Heparin, Nitro, Insulin, Cardizem)? @ -No Were any procedures done? @ -No Diagnosis/symptom? @ -Pharyngitis Acute, or Chronic, or Acute on Chronic? @ -Acute Uncomplicated (without systemic symptoms) or Complicated (systemic symptoms)? @ -Uncomplicated Side effects of treatment? @ -No Exacerbation, Progression, or Severe Exacerbation? @ -No Poses a threat to life or bodily function? How? (Chest pain, [place], [place], pneumonia, PE, COPD, DKA, ARF, appy, cholecystitis, CVA, Diverticulitis, Homicidal, Suicidal, threat to staff... and all critical care pts) @ -No - Lab Data Lab Results 07/10/23 07/10/23 Range/Units 01:02 01:02 Influenza Type A (PCR) Not Detected (Not Detectd) Influenza Type B (PCR) Not Detected (Not Detectd) RSV (PCR) Not Detected (Not Detectd) SARS-CoV-2 (PCR) Not Detected (Not Detectd) Group A Strep (PCR) NOT DETECTED (Not Detectd) Disposition Clinical Impression: Pharyngitis Disposition: HOME SELF-CARE Condition: Good Instructions (If sedation given, give patient instructions): Pharyngitis (ED) Additional Instructions: Follow-up with PCP. Report back to ER with any new or worsening symptoms. Take Motrin and Tylenol as needed for pain control. Is patient prescribed a controlled substance at d/c from ED?: No Referrals: Aries Tse DO [Primary Care Provider] - 1-2 days Time of Disposition: 02:02
[2023-07-10 02:16] VITALS: BP 121/82; PULSE 81
== END 2023-07-10 02:10 | disposition home or self-care (01) ==
LOC: EC 23:08
DX: J02.9 Acute pharyngitis, unspecified (principal); Z20.822 Contact with and (suspected) exposure to COVID-19; Z88.0 Allergy status to penicillin; Z88.1 Allergy status to other antibiotic agents; Z88.5 Allergy status to narcotic agent; Z91.09 Other allergy status, other than to drugs and biological substances; Z90.49 Acquired absence of other specified parts of digestive tract; Z87.891 Personal history of nicotine dependence
CPT/HCPCS: 87070; 87636; 87651; 99283

== ENCOUNTER 2024-07-18 06:43 | Emergency (ER) | payer SELFPAY ==
--- NOTE | 2024-07-18 07:22 | ED ---
ENT HPI - General Chief complaint: ENT Stated complaint: throat pain Time Seen by Provider: 07/18/24 06:49 Source: patient, RN notes reviewed Mode of arrival: ambulatory Limitations: no limitations - History of Present Illness Initial comments: 49-year-old female presents emergency department chief complaint of throat pain. Patient states that started couple days ago initially started at work, she thought she was having allergic reaction she presented to the emergency room at that time was given Benadryl, steroids at that time. She states that she was sent home eventually and was not given any further medications. She states she has painful swallowing but no difficulty states he just feels very dry, irritated. - Related Data Previous Rx's Medication Instructions Recorded Ibuprofen [Children's Advil] 600 mg PO Q8H #500 ml 11/12/21 Azithromycin [Zithromax Z Pack] 0 tab PO DIRECTED #6 tab 07/18/24 Lidocaine Viscous 2% [Xylocaine 5 ml MUCOUS MEM QID #100 ml 07/18/24 Viscous] predniSONE 50 mg PO DAILY #5 tab 07/18/24 Allergies Allergy/AdvReac Type Severity Reaction Status Date / Time adhesive tape Allergy BLISTERS Verified 07/18/24 06:47 bacitracin Allergy Rash/Hives Verified 07/18/24 06:47 [From Neosporin ([id number])] morphine Allergy Itching Verified 07/18/24 06:47 neomycin Allergy Rash/Hives Verified 07/18/24 06:47 [From Neosporin ([id number])] Penicillins Allergy Rash/Hives Verified 07/18/24 06:47 polymyxin B Allergy Rash/Hives Verified 07/18/24 06:47 [From Neosporin ([id number])] cephalexin monohydrate AdvReac Nausea & Verified 07/18/24 06:47 [From Keflex] Vomiting & Diarrhea Review of Systems ROS Statement: Those systems with pertinent positive or pertinent negative responses have been documented in the HPI. ROS Other: All systems not noted in ROS Statement are negative. Past Medical History Past Medical History: Thyroid Disorder Additional Past Medical History / Comment(s): HEAVY BLEEDING History of Any Multi-Drug Resistant Organisms: None Reported Past Surgical History: Adenoidectomy, Appendectomy, Section, Cholecystectomy, Hernia Repair, Tubal Ligation Additional Past Surgical History / Comment(s): ablation nov 24 Past Anesthesia/Blood Transfusion Reactions: No Reported Reaction Additional Past Anesthesia/Blood Transfusion Reaction / Comment(s): TO LONGER WAKING UP " Past Psychological History: No Psychological Hx Reported Smoking Status: Former smoker Past Alcohol Use History: None Reported Past Drug Use History: None Reported - Past Family History Mother Family Medical History: No Reported History General Exam Limitations: no limitations General appearance: alert, in no apparent distress Head exam: Present: atraumatic, normocephalic, normal inspection Eye exam: Present: normal appearance, PERRL, EOMI. Absent: scleral icterus, conjunctival injection, periorbital swelling ENT exam: Present: mucous membranes moist, TM's normal bilaterally, normal external ear exam. Absent: normal oropharynx (Posterior pharynx, swallowing secretions well.) Neck exam: Present: normal inspection, full ROM. Absent: tenderness, meningismus, lymphadenopathy Respiratory exam: Present: normal lung sounds bilaterally. Absent: respiratory distress, wheezes, rales, rhonchi, stridor Cardiovascular Exam: Present: regular rate, normal rhythm, normal heart sounds. Absent: systolic murmur, diastolic murmur, rubs, gallop, clicks Course Vital Signs 07/18/24 07/18/24 06:44 06:48 Temperature 97.8 F Pulse Rate 102 H Respiratory 20 Rate Blood Pressure 152/77 O2 Sat by Pulse 99 Oximetry Medical Decision Making - Medical Decision Making Was pt. sent in by a medical professional or institution ([facility], TUBE KNITTER, urgent care, hospital, or senior living...) When possible be specific @ -No Did you speak to anyone other than the patient for history (EMS, parent, family, police, friend...)? What history was obtained from this source @ -No Did you review nursing and triage notes (agree or disagree)? Why? @ -I reviewed and agree with nursing and triage notes Were old charts reviewed (outside hosp., previous admission, EMS record, old EKG, old radiological studies, urgent care reports/EKG's, senior living records)? Report findings @ -No old charts were reviewed Differential Diagnosis (chest pain, altered mental status, abdominal pain women, abdominal pain men, vaginal bleeding, weakness, fever, dyspnea, syncope, headache, dizziness, GI bleed, back pain, seizure, CVA, palpatations, mental health, musculoskeletal)? @ -Pharyngitis, tonsillitis, COVID 19, RSV, influenza, pneumonia, acute bronchitis, URI, this list is not all inclusive EKG interpreted by me (3pts min.). @ -None X-rays interpreted by me (1pt min.). @ -None done CT interpreted by me (1pt min.). @ -None done U/S interpreted by me (1pt. min.). @ -None done What testing was considered but not performed or refused? (CT, X-rays, U/S, labs)? Why? @ -None What meds were considered but not given or refused? Why? @ -None Did you discuss the management of the patient with other professionals (professionals i.e. , PA, TUBE KNITTER, lab, RT, psych nurse, high school social studies teacher, recycling attendant, teacher, customer service security officer, rn case management)? Give summary @ -No Was smoking cessation discussed for >3mins.? @ -No Was critical care preformed (if so, how long)? @ -No Were there social determinants of health that impacted care today? How? (Homelessness, low income, unemployed, alcoholism, drug addiction, transportation, low edu. Level, literacy, decrease access to med. care, assisted, rehab)? @ -No Was there de-escalation of care discussed even if they declined (Discuss DNR or withdrawal of care, Hospice)? DNR status @ -No What co-morbidities impacted this encounter? (DM, HTN, Smoking, COPD, CAD, Cancer, CVA, ARF, Chemo, Hep., AIDS, mental health diagnosis, sleep apnea, morbid obesity)? @ -None Was patient admitted / discharged? Hospital course, mention meds given and route, prescriptions, significant lab abnormalities, going to OR and other pertinent info. @ -Discharge patient's swabs are negative patient does have acute pharyngitis concerning for possible underlying infection as symptoms have been persistent. Patient discharged on antibiotics and steroids return transfer discussed. Undiagnosed new problem with uncertain prognosis? @ -No Drug Therapy requiring intensive monitoring for toxicity (Heparin, Nitro, Insulin, Cardizem)? @ -No Were any procedures done? @ -No Diagnosis/symptom? @ -Pharyngitis Acute, or Chronic, or Acute on Chronic? @ -Acute Uncomplicated (without systemic symptoms) or Complicated (systemic symptoms)? @ -Uncomplicated Side effects of treatment? @ -No Exacerbation, Progression, or Severe Exacerbation? @ -No Poses a threat to life or bodily function? How? (Chest pain, [place], [place], pneumonia, PE, COPD, DKA, ARF, appy, cholecystitis, CVA, Diverticulitis, Homicidal, Suicidal, threat to staff... and all critical care pts) @ -No - Lab Data Lab Results 07/18/24 07/18/24 Range/Units 06:55 06:55 Influenza Type A (PCR) Not Detected (Not Detectd) Influenza Type B (PCR) Not Detected (Not Detectd) RSV (PCR) Not Detected (Not Detectd) SARS-CoV-2 (PCR) Not Detected (Not Detectd) Group A Strep (PCR) NOT DETECTED (Not Detectd) Disposition Clinical Impression: Acute pharyngitis Disposition: HOME SELF-CARE Condition: Stable Instructions (If sedation given, give patient instructions): Pharyngitis (ED) Additional Instructions: Please return to the Emergency Department if symptoms worsen or any other concerns. Prescriptions: predniSONE 50 mg PO DAILY #5 tab Lidocaine Viscous 2% [Xylocaine Viscous] 5 ml MUCOUS MEM QID #100 ml Azithromycin [Zithromax Z Pack] 0 tab PO DIRECTED #6 tab Is patient prescribed a controlled substance at d/c from ED?: No Referrals: Aries Tse DO [Primary Care Provider] - 1-2 days Time of Disposition: 08:00
[2024-07-18] MEDS: LIDOCAINE VISCOUS 2% 15 ML CUP PO ONE (07:27)
[2024-07-18 08:24] VITALS: BP 134/90; PULSE 74; RESP 18; TEMP 98.2
== END 2024-07-18 08:27 | disposition home or self-care (01) ==
LOC: EC 06:43
CPT/HCPCS: 87636; 87651; 99283